=== PATIENT | female | born 1970 | race Caucasian/White ===

== ENCOUNTER 2018-04-21 13:32 | Outpatient (CLI) | payer BC, SELFPAY ==
[2018-04-21 13:56] LABS: Abs Immature Grans 0.02 k/cumm (0.0-0.09); Absolute Basophil Count 0.04 k/cumm (0.0-0.2); Absolute Eosinophil Count 0.19 k/cumm (0.0-0.7); Absolute Lymphocyte Count 1.82 k/cumm (1.2-3.4); Absolute Monocyte Count 0.65 k/cumm (0.11-0.7); Absolute Neutrophil Count 6.01 k/cumm (1.2-6.7); Basophils % 0.5; Eosinophils % 2.2; HCT 36.4 % (36.0-46.0); HGB 11.9 g/dL (12.0-15.5); Immature Grans % 0.2; Lymphocytes % 20.8; Mean Corp. HGB Concentration 32.7 g/dL (32.0-36.0); Mean Corpuscular Hemoglobin 29.8 pg (27.0-33.0); Mean Corpuscular Volume 91.2 fL (80-95); Mean Platelet Volume 10.4 fL (8.0-11.0); Monocytes % 7.4; Neutrophils % 68.9; Platelet Count 324 x1000/uL (130-400); RBC 3.99 m/cumm (4.00-5.20); RBC Distribution Width 13.6 % (11.7-14.6); White Blood Cell Count 8.73 k/cumm (4.4-10.8)
[2018-04-21 14:15] LABS: ALT 21 U/L (12-78); AST 15 U/L (15-37); Alkaline Phosphatase 69 U/L (46-116); Anion Gap 6.5 mmol/L (3-11); BUN 16 mg/dL (7-18); Bilirubin, Total 0.2 mg/dL (0.2-1.0); CO2 29.5 mmol/L (21.0-32.0); CREATININE 0.79 mg/dL (0.55-1.02); Calcium 8.6 mg/dL (8.5-10.1); Chloride 103 mmol/L (98-107); Glucose 103 mg/dL (70-100); Potassium 3.9 mmol/L (3.5-5.1); Sodium 139 mmol/L (136-145)
== END 2018-04-21 13:52 ==
PROVIDERS: PCP Nurse Practitioner; Visit Provider Internal Medicine Hematology & Oncology
DX: C50.912 Malignant neoplasm of unspecified site of left female breast (principal); Z17.0 Estrogen receptor positive status [ER+]
CPT/HCPCS: 36415; 80053; 85025

== ENCOUNTER 2018-05-26 09:51 | Outpatient (CLI) | payer MEDICAID, SELFPAY ==
[2018-05-26 11:52] LABS: Cholesterol 232 mg/dL (50-200); HDL Cholesterol 48 mg/dL (40-60); LDL CHOLESTEROL 171 mg/dL (<100); Triglyceride 71 mg/dL (30-150)
[2018-05-26 12:07] LABS: Hemoglobin A1C 5.5 % (4.5-6.2)
[2018-05-26 12:15] LABS: FREE T4 1.53 ng/dL (0.76-1.46)
[2018-05-26 13:28] LABS: Vitamin D 25 Total 32.2 ng/ml (30-100)
== END 2018-05-26 10:11 ==
PROVIDERS: PCP Nurse Practitioner; Visit Provider Nurse Practitioner
DX: C73 Malignant neoplasm of thyroid gland (principal); E03.9 Hypothyroidism, unspecified; I10 Essential (primary) hypertension; R73.01 Impaired fasting glucose; E66.01 Morbid (severe) obesity due to excess calories; E55.9 Vitamin D deficiency, unspecified
CPT/HCPCS: 36415; 80061; 82306; 83721; 83036; 84439; 84443

== ENCOUNTER 2018-06-16 15:13 | Outpatient (REF) | payer MEDICAID, SELFPAY ==
--- NOTE | 2018-06-16 14:30 | PAPFT_PTH ---
PATIENT: Matteo Kim LOC: [facility] U#:[id number] AGE/SX: 47/F ROOM: RE06/16/[address]: Martha Montero : 1970 BED: DIS: 06/16/2018 SPEC #: [id number] RECD: 06/16/18 18:08 STATUS: JOVITAHector JAVIER #: [id number] CARYL: 06/16/18 14:[address]: Martha Montero DEPT: [facility] Cytology RECD BY: Ghada Fox ENTERED: 06/16/18 18:08 SP TYPE: PAPFT SULEMAN DR: Luisana Ayala APRN Tissues: 1 - CX/ENDOCX FOR PAP SMEARS Procedures: PAP THIN PREP/UVM Screening HPV DNA PROBE Comments: [id number]
== END 2018-06-16 15:33 ==
LOC: LBN 15:13
PROVIDERS: PCP Nurse Practitioner; Visit Provider Obstetrics & Gynecology Gynecology
DX: Z12.4 Encounter for screening for malignant neoplasm of cervix (principal); Z11.51 Encounter for screening for human papillomavirus (HPV)
CPT/HCPCS: 88142; 87624

== ENCOUNTER 2018-11-12 14:05 | Outpatient (CLI) | payer MEDICAID, SELFPAY ==
--- NOTE | 2018-11-12 14:06 | DI.US_ITS ---
SYMPTOM/DIAGNOSIS: UTERINE FIBROIDS N93.9, ABNL UTERINE BLEEDING PELVIC ULTRASOUND: Transabdominal and transvaginal examination was performed. The uterus measures 9.4 cm long x 5.2 cm AP x 6.1 cm transverse. The endometrial stripe is within normal limits at 0.8 cm. There is a 6 x 4.5 x 5.6 cm hypoechoic mass adjacent to the posterior body of the uterus. No internal blood flow is seen. Both ovaries were visualized and are grossly unremarkable with normal blood flow. No evidence of torsion is seen No free pelvic fluid or hydronephrosis is identified. IMPRESSION: 6 x 4.5 x 5.6 cm hypoechoic mass posterior to the uterus. This may represent an exophytic uterine fibroid. Other pelvic masses cannot be excluded. An MRI of the pelvis should be considered for further evaluation.
== END 2018-11-12 14:25 ==
PROVIDERS: PCP Nurse Practitioner; Visit Provider Obstetrics & Gynecology Gynecology
DX: D25.9 Leiomyoma of uterus, unspecified; N93.9 Abnormal uterine and vaginal bleeding, unspecified
CPT/HCPCS: 76830; 76856

== ENCOUNTER 2018-11-24 09:03 | Outpatient (CLI) | payer MEDICAID, SELFPAY ==
[2018-11-24 09:23] LABS: HCT 39.1 % (36.0-46.0); HGB 12.7 g/dL (12.0-15.5); Mean Corp. HGB Concentration 32.5 g/dL (32.0-36.0); Mean Corpuscular Hemoglobin 29.3 pg (27.0-33.0); Mean Corpuscular Volume 90.3 fL (80-95); Mean Platelet Volume 10.5 fL (8.0-11.0); Platelet Count 331 x1000/uL (130-400); RBC 4.33 m/cumm (4.00-5.20); White Blood Cell Count 6.25 k/cumm (4.4-10.8)
[2018-11-24 10:25] LABS: Calculated LDL 153 mg/dL; Cholesterol 214 mg/dL (50-200); HDL Cholesterol 47 mg/dL (40-60); Triglyceride 72 mg/dL (30-150)
[2018-11-24 11:38] LABS: FREE T4 1.74 ng/dL (0.76-1.46)
== END 2018-11-24 09:23 ==
PROVIDERS: PCP Nurse Practitioner; Visit Provider Obstetrics & Gynecology Gynecology
DX: E03.9 Hypothyroidism, unspecified (principal); N93.9 Abnormal uterine and vaginal bleeding, unspecified
CPT/HCPCS: 36415; 80061; 85027; 84439; 84443

== ENCOUNTER 2018-12-09 14:55 | Outpatient (CLI) | payer MEDICAID, SELFPAY ==
[2018-12-09 16:04] LABS: HCT 36.4 % (36.0-46.0); HGB 12.2 g/dL (12.0-15.5); Mean Corp. HGB Concentration 33.5 g/dL (32.0-36.0); Mean Corpuscular Volume 89.7 fL (80-95); Mean Platelet Volume 11.1 fL (8.0-11.0); Platelet Count 325 x1000/uL (130-400); RBC 4.06 m/cumm (4.00-5.20); RBC Distribution Width 14.6 % (11.7-14.6); White Blood Cell Count 10.42 k/cumm (4.4-10.8)
[2018-12-09 16:17] LABS: Anion Gap 2.9 mmol/L (3-11); BUN 21 mg/dL (7-18); CO2 29.1 mmol/L (21.0-32.0); CREATININE 0.76 mg/dL (0.55-1.02); Calcium 8.6 mg/dL (8.5-10.1); Chloride 106 mmol/L (98-107); Glucose 83 mg/dL (70-100); Potassium 3.7 mmol/L (3.5-5.1); Sodium 138 mmol/L (136-145)
[2018-12-09 16:31] LABS: TSH (W/Ref FT4) 1.29 uIU/mL (0.36-3.74)
== END 2018-12-09 15:15 ==
PROVIDERS: PCP Nurse Practitioner; Visit Provider Obstetrics & Gynecology Gynecology
DX: E03.9 Hypothyroidism, unspecified (principal); Z01.818 Encounter for other preprocedural examination; N93.8 Other specified abnormal uterine and vaginal bleeding; D25.9 Leiomyoma of uterus, unspecified; E66.9 Obesity, unspecified; Z01.812 Encounter for preprocedural laboratory examination
CPT/HCPCS: 36415; 80048; 85027; 86850; 86900; 86901; 84443

== ENCOUNTER 2018-12-11 12:37 | Observation (INO) | payer MEDICAID, SELFPAY ==
[2018-12-11] VITALS (14 sets, daily range): BP systolic 128–165; BP diastolic 73–99; PULSE 62–77; RESP 11–18; TEMP 36–37.1; O2SAT 95–99
[2018-12-11] MEDS: Lactated Ringers 1,000 ML 125 ML IV ×5 (07:05→22:33)
[2018-12-11] MEDS: ceFAZolin 2 GM/50 ML BAG IVPB (07:56)
[2018-12-11] MEDS: Bupivacaine 0.25% Pres-Free 30 ML VIAL (09:24)
--- NOTE | 2018-12-11 12:00 | UTER_PTH ---
PATIENT: Matteo Kim LOC: U#:[id number] AGE/SX: 48/F ROOM: RE12/11/[address]: Martha Montero : 1970 BED: A DIS: 12/12/2018 SPEC #: [id number] RECD: 12/11/18 12:57 STATUS: MARILY REQ #: [id number] CARYL: 12/11/18 12:[address]: Martha Montero DEPT: Surgical Specimen RECD BY: Ghada Fox ENTERED: 12/11/18 12:58 SP TYPE: UTER OTHR DR: Luisana Ayala APRN Tissues: 1 - UTERUS W OR W/O OVARIES(NOT TUMOR/PROLAPSE) Procedures: GROSS AND MICRO LEVEL 5 Comments: [id number]
[2018-12-11] MEDS: oxyCODONE 5 mg/Acetaminophen 325 mg TAB PO ×3 (14:29→19:43)
[2018-12-11] MEDS: Ketorolac 30 MG/ML VIAL IVP (17:03)
--- NOTE | 2018-12-11 18:34 | W.PM.OP ---
Date of service: 12/11/18 Time of Service: 18:34 Operative Note Operative Note DATE OF PROCEDURE: 12/11/18 PRE-OP DIAGNOSIS: Abnormal uterine bleeding, fibroid uterus POST-OP DIAGNOSIS: same PROCEDURE: Laparoscopic assisted vaginal hysterectomy with bilateral salpingo-oophorectomy. SURGEON: Martha Montero ENDLESS BED DRUM SANDER: Lyla Ford ANESTHESIA: GETA ESTIMATED BLOOD LOSS: 200 PATHOLOGY: other (Uterus uterine fibroid bilateral fallopian tubes and ovaries) COMPLICATIONS: None Patient was transported to: PACU Patient's condition: stable Indications: 48-year-old female with symptomatic uterine fibroid and abnormal uterine bleeding was not a candidate for medical therapy Findings: 6 cm pedunculated fibroid from the posterior lower uterine segment normal ovaries and normal fallopian tubes. Normal upper abdomen. Procedure Description: Patient was placed in the dorsal lithotomy position and general endotracheal anesthesia was administered without difficulty. She received preoperative IV antibiotics prior to entry to the operating room. She was prepped and draped in the usual sterile fashion after being placed in the lithotomy position using yellowfin stirrups. Surgical timeout was performed. Espinal catheter placed to gravity drainage a bivalve speculum was placed into the vagina and the anterior lip of the cervix was grasped with a single-tooth tenaculum and a 0 Vicryl suture was placed through the body of the cervix and held long. The cervix then sequentially dilated to admit a V care uterine manipulator was inserted to a depth of 8 cm and the bulb inflated. The V care colpotomizer cup was then fitted over the cervix and against the vaginal cervical interface. An attempt at using the 0 Vicryl suture to secure the colpotomizer cup was unsuccessful when the suture was pulled through the cervix. However the colpotomizer cup was secured in place with excellent uterine manipulation achieved. Attention was then turned to the patient's abdomen where the umbilical fold was infiltrated with quarter percent Marcaine and a 5 mm skin incision was made with a scalpel in a vertical fashion in the umbilical fold. Under direct visualization using ultrasound guidance a varies needle was inserted through the umbilical incision and intra-abdominal placement visualized with ultrasound guidance and confirmed by drop in the intra-abdominal pressure. Pneumoperitoneum was achieved with carbon dioxide. The varies needle was then withdrawn and a 5 mm trocar Visiport was introduced into the abdomen and intra-abdominal placement confirmed visually. Patient was then placed in Trendelenburg and 2 5 mm skin incisions were made with a scalpel 2.5 cm to the superior anterior iliac crest after infiltration of the site with quarter percent Marcaine. A 5 mm trocar and sleeve were placed through the right and left incisions respectively. The patient was then placed in Trendelenburg. Her pelvis, cul-de-sac, and pelvic sidewalls carefully inspected with the above-noted findings. A LigaSure bipolar device was used to grasp the left round ligament which was then cauterized and transected. The anterior leaf the broad ligament was then sequentially cauterized and transected to the level of the lower uterine segment. This allowed the bladder flap to be dissected off of the lower uterine segment and the bladder retracted away from the body of the cervix. The left infundibulopelvic ligament was then grasped cauterized and transected and the incision carried out to the posterior leaf of the broad ligament to the lateral margin of the left lower uterine segment. A similar technique was carried out on the contralateral side with the anterior lip of the broad ligament incised to the level of the previous lower uterine segment which allowed sufficient mobilization of the bladder flap. The right-sided uterine vessels were skeletonized, cauterized and transected. The left uterine vessels were then skeletonized cauterized and transected. The posterior peritoneum was then incised in any additional filmy attachments of the bladder flap to the lower uterine segment where cauterized and transected. Colpotomizer cup was palpable and the anterior cup was felt to be distant from the bladder. A monopolar J-hook was then used to cut the cervix away from the vaginal tissue along the anterior, lateral, and posterior lower uterine segment. There is confirmed that the cervix was completely dissected from the vaginal cuff the pneumoperitoneum was reduced and surgery proceeded at the vagina. The colpotomizer was removed. The balloon that had been inflated within the uterine cavity had deflated so we were unable to deliver the uterus and the colpotomizer together. A weighted speculum was placed into the vagina and the anterior wall of the vagina was retracted using a curved Freddy the cervix was palpated grasped with a single-tooth tenaculum and successfully delivered through the vaginal cuff followed by the uterus right adnexa with attached fibroid. The left fallopian tube was intact at the left ovary had been evulsed and remained in the abdomen. The specimen was passed off of the operative field. The vaginal cuff was closed with a running suture of 0 Vicryl extending from the cephalad to the caudal portion of the vaginal cuff. Site was hemostatic. Vaginal packing was placed. Attention was then turned to the abdomen. After the counts and gloves were changed pneumoperitoneum was once again reestablished patient placed in Trendelenburg and the remaining ovary was located at the vaginal cuff grasped placed in a 10 mm Endo Catch bag which had been placed through the right lower incision that had been extended to admit a 10 mm trocar and sleeve. The vaginal cuff was inspected and noted to be hemostatic all pedicles from the right and left adnexa were also hemostatic. Pelvis is irrigated saline was aspirated. A Ezequiel-Cathy device was used to close the right lower 10 mm trocar site. Under direct visualization the left 5 mm trocar was removed pneumoperitoneum reduced and a 5 mm umbilical trocar removed. The skin of all trocar sites was closed with skin glue and covered with a dry sterile dressing. The patient was awakened from anesthesia extubated and transported to recovery area in stable condition all sponge lap and needle counts were correct x2.
--- NOTE | 2018-12-11 19:06 | W.PM.PROGNOT ---
Date of Service Date of service: 12/11/18 Time of Service: 19:07 Assessment and Plan Assessment and plan (1) S/P laparoscopic hysterectomy: Status: Acute Assessment and plan: Stable postop course plan discharge in the morning check CBC and BMP. Plan to remove vaginal packing in a.m. Subjective Subjective Patient reports: tolerating a regular diet Interval history since last seen: Postop day 0 laparoscopic assisted vaginal hysterectomy with bilateral salpingo-oophorectomy. Patient sitting up in bed stating that she is comfortable having received Toradol and a dose of Percocet. I reviewed the events of the surgery and the plan of care for this evening. She was instructed that she may get up with assistance as needed and if she felt comfortable enough to ambulate she could have the Espinal out at her discretion. The vaginal packing will be removed in the morning and most likely she will be discharged to home. Exam Const General: no acute distress Resp Effort & Inspection: normal respiratory effort GI Inspection: incision (Was clean dry dressings) Other: Vaginal packing remains in place. Clear burke urine in the Espinal catheter. Skin General skin exam: no rashes or lesions noted Extrem General: normal to inspection, full ROM (SCDs in place.) and normal capillary refill Objective Objective Clinical Data: Vital Signs Temperature 96.8 F L 12/11/18 16:17 Temperature Source Tympanic 12/11/18 16:17 Pulse 71 12/11/18 16:17 Pulse Rhythm Regular 12/11/18 14:15 Respiratory Rate 18 12/11/18 16:17 Respiratory Effort 12/11/18 14:15 Respiratory Depth Normal 12/11/18 14:15 Respiratory Pattern Normal 12/11/18 14:15 Blood Pressure 147/95 H 12/11/18 16:17 Pulse Oximetry 98 12/11/18 16:17 Respiratory End-tidal CO2 34 12/11/18 13:35 Oxygen Delivery Method Room Air 12/11/18 16:17 Oxygen Flow Rate 0 12/11/18 16:17 Pain Level 3 12/11/18 17:03 Comment 12/11/18 06:37 Intake & Output 12/10/18 12/11/18 12/11/18 23:59 11:59 23:59 Intake Total 1050 / 2408.333 1358.333 / 2408.333 Output Total 2049 Balance 1050 / 358.333 -691.667 / 358.333 Weight 271 lb 6.224 oz Intake: IV 1050 / 2358.333 1308.333 / 2358.333 Oral 50 / 50 Output: Urine 1550 / 1550 Estimated Blood Loss 500 / 500 Other: Urine Color Yellow Yellow Urine Appearance Clear Clear Emesis Description None
[2018-12-11] MEDS: Docusate Sodium 100 MG CAP PO (19:35)
[2018-12-12] MEDS: Ketorolac 30 MG/ML VIAL IVP ×2 (01:10→06:19)
[2018-12-12] MEDS: Normal Saline Flush 10 ML SYR IV ×3 (01:10→06:20)
[2018-12-12] MEDS: oxyCODONE 5 mg/Acetaminophen 325 mg TAB PO ×2 (01:21→09:29)
[2018-12-12] MEDS: diphenhydrAMINE 50 MG/ML VIAL IVP (01:29)
[2018-12-12 03:30] VITALS: BP 142/76; PULSE 71; RESP 17; TEMP 37.2; O2SAT 96
[2018-12-12] MEDS: Levothyroxine 175 MCG TAB PO (06:20)
[2018-12-12] MEDS: Lactated Ringers 1,000 ML 125 ML IV (06:21)
[2018-12-12 07:05] LABS: Anion Gap 3.8 mmol/L (3-11); BUN 10 mg/dL (7-18); CO2 28.2 mmol/L (21.0-32.0); CREATININE 0.71 mg/dL (0.55-1.02); Chloride 109 mmol/L (98-107); Glucose 95 mg/dL (70-100); Potassium 3.8 mmol/L (3.5-5.1); Sodium 141 mmol/L (136-145)
[2018-12-12 07:06] LABS: HCT 31.7 % (36.0-46.0); HGB 10.3 g/dL (12.0-15.5); Mean Corp. HGB Concentration 32.5 g/dL (32.0-36.0); Mean Corpuscular Hemoglobin 29.4 pg (27.0-33.0); Mean Corpuscular Volume 90.6 fL (80-95); Mean Platelet Volume 10.6 fL (8.0-11.0); Platelet Count 286 x1000/uL (130-400); RBC Distribution Width 14.7 % (11.7-14.6); White Blood Cell Count 11.39 k/cumm (4.4-10.8)
[2018-12-12 07:20] VITALS: BP 151/89; PULSE 63; RESP 18; TEMP 36.6; O2SAT 98
--- NOTE | 2018-12-12 08:15 | PHARADMIT ---
Admission Pharmacy Clinical Review LAPAROSCOPIC HYSTERECTOMY & BILATERAL SALPINGOOP Code Status Full Code Current Weight Wgt- 123.1 kg Renally Cleared and Narrow Therapeutic Index Meds CrCl~78.75 mL/min Meds-OK QTc Value / Action Taken NONE CURRENT BP Control, Fever BP- 151/89 Tm<ax-37.1C Electrolytes reviewed Na-141 K+3.8 DVT Prophylaxis SCDs Opiate Usage / Scheduled Bowel Regimen Ordered Yes Yes Plt/SCr for Heparin / Enoxaparin Plts-286 SCr-0.71 INR for Warfarin NA H/H stable, WBC/Bands H&H- 10.3/31.7 WBC-11.39 Antibiotic appropriatancef pre-op ancef pre-op Cultures and Sensitivities none Surgical ABX d/c within 24 hr none DM control / Insulin Dosing BG-95 Heart Failure (Check EF%) (BIENVENIDO's, B-Block, Diuretics) none IV to PO Switch no Home Meds Reviewed Yes Home Meds Not Ordered Claritin, Vit-D,M-vites, Ativan, TAC cream Comments
[2018-12-12] MEDS: Docusate Sodium 100 MG CAP PO (09:29)
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
== END 2018-12-12 12:35 | disposition home or self-care (01) ==
LOC: SUR 12:57 → MS 14:10
PROVIDERS: Admitting Provider Obstetrics & Gynecology Gynecology; PCP Nurse Practitioner; Visit Provider Obstetrics & Gynecology Gynecology
PROC: 0UT9FZZ Resection of Uterus, Via Natural or Artificial Opening With Percutaneous Endoscopic Assistance (ICD-10-PCS; CPT 58552; principal; 2018-12-11 07:30)
DX: N93.8 Other specified abnormal uterine and vaginal bleeding (principal); D25.1 Intramural leiomyoma of uterus; D25.0 Submucous leiomyoma of uterus; N84.1 Polyp of cervix uteri; D25.9 Leiomyoma of uterus, unspecified; N83.12 Corpus luteum cyst of left ovary; D28.2 Benign neoplasm of uterine tubes and ligaments; Z85.3 Personal history of malignant neoplasm of breast; Z90.710 Acquired absence of both cervix and uterus; Z90.79 Acquired absence of other genital organ(s); Z90.722 Acquired absence of ovaries, bilateral; E66.9 Obesity, unspecified; Z68.41 Body mass index [BMI] 40.0-44.9, adult
CPT/HCPCS: 58552; 36415; 80048; 81025; 85027; NC; 88307; G0378; J0131; J0690; J1100; J1200; J1885; J2250; J2405; J3010

== ENCOUNTER 2019-03-12 07:11 | Emergency (ER) | payer MEDICAID, SELFPAY ==
[2019-03-12 07:18] VITALS: BP 187/109; PULSE 88; RESP 16; TEMP 36.6; O2SAT 100
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
[2019-03-12] MEDS: Dexamethasone 10 MG/ML VIAL PO (07:36)
[2019-03-12 07:51] VITALS: BP 159/90; PULSE 62; O2SAT 100
== END 2019-03-12 07:55 | disposition home or self-care (01) ==
PROVIDERS: Emergency Provider Emergency Medicine; PCP Nurse Practitioner
DX: J39.8 Other specified diseases of upper respiratory tract (principal); R60.0 Localized edema; R06.83 Snoring
CPT/HCPCS: 99284; J1100

== ENCOUNTER 2019-03-23 14:37 | Outpatient (CLI) | payer MEDICAID, SELFPAY ==
[2019-03-25 14:56] LABS: Almond IgE <0.35 kU/L; Baker's Yeast, IgE <0.35 kU/L; Banana, IgE 0.38 kU/L; Barley, IgE <0.35 kU/L; Beef IgE <0.35 kU/L; Black/White Pepper IgE <0.35 kU/L; Brazil Nut IgE <0.35 kU/L; Broccoli IgE <0.35 kU/L; Cacao/Cocoa, IgE <0.35 kU/L; Cashew IgE <0.35 kU/L; Cinnamon, IgE <0.35 kU/L; Corn-Food IgE <0.35 kU/L; Hazelnut-Food IgE <0.35 kU/L; Milk, IgE <0.35 kU/L; Onion, IgE <0.35 kU/L; Peanut IgE 0.14 kU/L; Pecan-Food IgE <0.35 kU/L; Soybean IgE <0.35 kU/L; Strawberry, IgE <0.35 kU/L; Walnut-Food IgE <0.35 kU/L; White Potato, IgE <0.35 kU/L
[2019-03-26 22:31] LABS: CLASS 0/1; Egg Whole IgE 0.13 kU/L (<0.35)
== END 2019-03-23 14:57 ==
PROVIDERS: PCP Nurse Practitioner; Visit Provider Otolaryngology Otolaryngology/Facial Plastic Surgery
DX: T78.3XXD Angioneurotic edema, subsequent encounter (principal); Z01.82 Encounter for allergy testing
CPT/HCPCS: 36415; 86003

== ENCOUNTER 2019-04-13 11:54 | Outpatient (CLI) | payer MEDICAID, SELFPAY ==
--- NOTE | 2019-04-13 11:53 | DI.RAD_ITS ---
EXAM: XR KNEE RT 3V AP,LAT,SHEN INDICATION: R knee pain. COMPARISON: No exams were available for comparison TECHNIQUE: 2D digital imaging was performed. FINDINGS: No fracture or joint effusion is seen. There is mild spurring at the articular aspect of the patella and tibial spines. The joint spaces are well maintained. IMPRESSION: Mild degenerative changes.
== END 2019-04-13 12:14 ==
PROVIDERS: PCP Nurse Practitioner; Visit Provider Physician Assistant
DX: M25.561 Pain in right knee (principal); M17.12 Unilateral primary osteoarthritis, left knee
CPT/HCPCS: 73562

== ENCOUNTER 2019-08-28 02:12 | Outpatient (CLI) | payer MEDICAID, SELFPAY ==
--- NOTE | 2019-08-28 06:45 | DI.MRI_ITS ---
EXAM: MR LOWER JOINT RT WO CLINICAL HISTORY: Right knee injury, PAIN, ACUTE MENISCAL TEAR,S83.206A. TECHNIQUE: Multiplanar multisequence MRI was performed. COMPARISON: CR XR KNEE RT 3V AP,LAT,SHEN from 04/13/2019 FINDINGS: BONES: There is no fracture or contusion pattern. JOINTS: There is mild thinning of the articular cartilage in the medial femoral tibial joint with mil d associated subchondral edema. Moderate joint effusion. TENDONS: Extensor mechanism: Unremarkable. Medial retinaculum: Unremarkable. Lateral retinaculum: Unremarkable. Popliteus: Unremarkable. MUSCLES: Unremarkable. MENISCI: Hyperintense signal seen in the body and posterior horn of the medial meniscus which appears to contact the articular surface consistent with a tear. The lateral meniscus is unremarkable. SOFT TISSUES: There is a popliteal cyst. LIGAMENTS: Anterior Cruciate: Unremarkable. Posterior Cruciate: Unremarkable. Medial Collateral:There is some fluid around the medial collateral ligament which may represent a gra de 1 sprain. Lateral Collateral: Unremarkable. OTHER: IMPRESSION: 1. Tear of the body and posterior horn of the medial meniscus. 2. Degenerative changes seen in the medial femoral tibial joint. 3. Moderate joint effusion and popliteal cyst. DATA REPOSITORY:
== END 2019-08-28 02:32 ==
PROVIDERS: PCP Nurse Practitioner; Visit Provider Student in an Organized Health Care Education/Training Program
DX: M25.561 Pain in right knee (principal); S83.241A Other tear of medial meniscus, current injury, right knee, initial encounter; M25.461 Effusion, right knee; M17.11 Unilateral primary osteoarthritis, right knee
CPT/HCPCS: 73721

== ENCOUNTER 2019-10-09 02:26 | Outpatient (CLI) | payer MEDICAID, SELFPAY ==
[2019-10-10 23:45] LABS: COVID-19 RT-PCR Result NEGATIVE (Negative)
== END 2019-10-09 02:46 ==
PROVIDERS: Student in an Organized Health Care Education/Training Program; PCP Nurse Practitioner; Visit Provider Nurse Practitioner
DX: M25.561 Pain in right knee (principal); Z01.818 Encounter for other preprocedural examination
CPT/HCPCS: U0003

== ENCOUNTER 2019-10-09 08:08 | Outpatient (CLI) | payer MEDICAID, SELFPAY ==
[2019-10-09 11:03] LABS: ALT 23 U/L (14-59); AST 13 U/L (15-37); Albumin 3.4 g/dL (3.4-5.0); Alkaline Phosphatase 81 U/L (46-116); BUN 17 mg/dL (7-18); Bilirubin, Total 0.5 mg/dL (0.2-1.0); Calcium 9.2 mg/dL (8.5-10.1); Calculated LDL 147 mg/dL (<100); Chloride 103 mmol/L (98-107); Cholesterol 209 mg/dL (<200); Glucose 93 mg/dL (74-106); HDL Cholesterol 45 mg/dL (40-60); Potassium 4.5 mmol/L (3.5-5.1); Sodium 141 mmol/L (136-145); TSH (W/Ref FT4) 0.12 uIU/mL (0.36-3.74); Total Protein 6.7 g/dL (6.4-8.2); Triglyceride 88 mg/dL (<150)
[2019-10-09 11:21] LABS: FREE T4 1.98 ng/dL (0.76-1.46)
== END 2019-10-09 08:28 ==
PROVIDERS: PCP Nurse Practitioner; Visit Provider Student in an Organized Health Care Education/Training Program
DX: E03.9 Hypothyroidism, unspecified (principal); E66.9 Obesity, unspecified; I10 Essential (primary) hypertension; Z01.818 Encounter for other preprocedural examination
CPT/HCPCS: 36415; 80053; 80061; 84439; 84443

== ENCOUNTER 2019-10-13 10:09 | Day surgery (SDC) | payer MEDICAID, SELFPAY ==
[2019-10-13 10:47] VITALS: BP 158/96; PULSE 63; RESP 18; TEMP 36; O2SAT 100
[2019-10-13] MEDS: Lactated Ringers 1,000 ML 80 ML IV (11:15)
[2019-10-13] MEDS: ceFAZolin 3,000 MG in Normal Saline 100 ML 200 MG IVPB (12:34)
--- NOTE | 2019-10-13 13:16 | W.PM.DSUDISC ---
Discharge Plan Disposition Patient Disposition: HOME Condition: Good Discharge Details Reason For Visit: R KNEE MMT Attending Provider: Hugo Pickett Primary Care Provider: Luisana Ayala Home Meds and New Rx's Prescriptions: New hydrocodone-acetaminophen 5-325 mg tablet 1 tab PO Q4H PRN (Reason: pain) Qty: 14 RF: 0 acetaminophen 500 mg tablet 500 mg PO Q6H PRN PRN (Reason: pain) Qty: 60 RF: 3 Continued biotin 1,000 mcg tablet,chewable 5,000 mcg PO DAILY RF: 0 multivitamin [Daily Multi-Vitamin] 1 EACH tablet 1 ea PO DAILY PRNRF: 0 diphenhydramine HCl [Benadryl] 25 MG capsule 25 mg PO HS PRNRF: 0 loratadine 10 mg capsule 10 mg PO DAILY PRN (Reason: allergy symptoms) Qty: 30 RF: 0 levothyroxine 175 mcg tablet 175 mcg PO DAILY Qty: 90 RF: 3 desoximetasone 0.05 % cream 1 applic TP BID RF: 0 cholecalciferol (vitamin D3) 1,250 mcg (50,000 unit) capsule 50,000 unit PO weekly Qty: 12 RF: 3 lorazepam 1 mg tablet 1 mg PO DAILY PRN (Reason: anxiety) Qty: 30 RF: 0 cetirizine 10 mg Tablet 10 mg PO DAILY PRNRF: 0 ibuprofen 800 mg tablet 800 mg PO TID PRN (Reason: fever or pain) Qty: 90 RF: 0 Discharge Instructions Stand Alone Forms: [facility] Knee Arthroscopy Referrals: Hugo Pickett MD [ [facility] STAFF PHYSICIAN] - Equipment/Supplies: Partial Weight Bearing Crutches Activity:: Elevate Remove Dressings/Wound Care:: 72 hours Shower/Bathe:: 72 hours Diet:: As Tolerated Discharge Orders Discharge Orders: Discharge Order (Routine); Ordered 10/13/19 Ordered By: Hugo Pickett DS: Diagnosis Discharge Diagnosis (1) Acute meniscal tear of right knee: Status: Suspected
[2019-10-13 13:21] VITALS: BP 160/97; PULSE 57; RESP 16; TEMP 36; O2SAT 98
[2019-10-13 13:25] VITALS: BP 169/135; PULSE 59; RESP 14; TEMP 36; O2SAT 98
[2019-10-13] MEDS: Bupivacaine 0.5% Pres-Free 30 ML VIAL (13:27)
[2019-10-13 13:30] VITALS: BP 177/89; PULSE 58; RESP 13; TEMP 36; O2SAT 100
[2019-10-13 13:45] VITALS: BP 161/79; PULSE 53; RESP 17; TEMP 36.1; O2SAT 100
[2019-10-13] MEDS: HYDROcodone 5/Acetaminophen 325 TAB PO (14:34)
[2019-10-13 14:40] VITALS: BP 159/98; PULSE 56; RESP 18; TEMP 36.3; O2SAT 99
--- NOTE | 2019-10-13 14:48 | ROE_ITS ---
Date of service: 10/13/19 Time of Service: 13:49 Operative Note Operative Note DATE OF PROCEDURE: 10/13/19 PRE-OP DIAGNOSIS: Right Knee Medial Meniscus Tear POST-OP DIAGNOSIS: same Right knee chondromalacia PROCEDURE: Right Knee Partial Medial Menisectomy, Lateral Tibial Chondroplasty SURGEON: Hugo Pickett ANESTHESIA: TIGRE ESTIMATED BLOOD LOSS: 5 PATHOLOGY: none sent TOURNIQUET TIME: 0 COMPLICATIONS: None Patient was transported to: PACU Patient's condition: stable Indications: I have seen Matteo in clinic for symptoms of a meniscus tear. This was confirmed based on MRI and exam findings. Nonoperative measures were exhausted but disability and pain persisted. I discussed knee arthroscopy with meniscal intervention with the patient. I reviewed the risks of the procedure to include, but not limited to, bleeding, infection, pain, stiffness, damage to nerves or vessels, recurrence, blood clot. Despite these risks, the patient elected to proceed. Findings: A diagnostic arthroscopy was performed with the following findings: Suprapatellar Pouch: Mild inflammatory changes, No loose bodies Medial Compartment: Complex medial meniscal tear, Intact meniscal root, some focal areas of grade II chondromalacia, no loose bodies Notch: ACL and PCL were intact Lateral Compartment: No meniscal tear, intact meniscal root, fissuring of the medial aspect of the lateral tibia down to bone but no gross bone exposed, no loose bodies Patellofemoral Compartment: Grade II chondromalacia over the lateral facet, no apparent patellar maltracking Procedure Description: Matteo was greeted in the preoperative holding area where the correct side was identified and marked. The consent was reviewed with the patient and signed. The history and physical was updated. All questions were answered. Matteo was taken back to the operating room. The patient was placed into the supine position on the operating room table. A nonsterile tourniquet was placed high onto the leg but not used. All bony prominences were well padded. Prophylactic antibiotics in the form of cefazolin were administered. The right leg was then prepped with Chloraprep and draped in a standard fashion with stockinette and extremity drape. A timeout to confirm correct identity, side and site, procedure, allergies, anesthesia, and medical concerns was performed. The leg was placed into a pneumatic leg george, [id number]. A standard lateral por toby was made at the lateral border of the patella tendon in line with the inferior pole of the patella, soft spot. The skin and deep tissue was incised sharply and the blunt trochar was inserted atraumatically. A diagnostic arthroscopy was performed and the findings are listed above. The suprapatellar pouch had mild inflammatory change. The patellofemoral articulation showed some grade II chondromalacia over the lateral facet as well as good tracking. The lateral gutter had no loose bodies and the medial gutter had no loose bodies. The knee was brought into some valgus stress in extension to open the medial compartment. A medial portal was made, localized by a spinal needle. The portal was created with an #11 blade through skin and capsule under direct visualization avoiding any meniscal injury. A probe was then inserted into the medial compartment. The medial compartment was fully inspected. The chondral surface of the tibia showed no significant chondromalacia and the surface of the femur showed some grade II chondromalacia. The medial meniscus had a complex medial meniscal tear extending from the horn into the root but not destabilizing the root. After evaluation, the meniscus was debrided down to a stable base using a series of biters and arthroscopic laurent. It was probed afterwards to confirm that the tear had been removed and the meniscus was stable. The notch was then inspected which showed an intact ACL and an intact PCL. The leg was then brought into a figure of 4 position. The lateral compartment was fully inspected with the arthroscope and a probe. The chondral surface of the lateral femur showed no significant chondromalacia. The chondral surface of the lateral tibia showed some fissuring and fraying of the medial aspect of the lateral tibia with some fissuring down to bone. There were also some loose fragments of cartilage lightly attached. The lateral meniscus had no meniscal tear. Cartilage surfaces were debrided of any flaps, leaving any intact fibers. The arthroscope was brought back into the suprapatellar pouch and the leg was in full extension. The knee was thoroughly irrigated with the arthroscopic fluid on high flow and pressure. Inflow was stopped and excess fluid was removed. The wounds were closed with 4-0 Nylon. They were dressed with Xeroform, 4x4 gauze, ABD pad, Kerlix and an BIENVENIDO wrap. A cryo-cuff was applied. The patient tolerated the procedure well and was returned to the Same Day Surgery area in a stable condition suffering no known complication.
== END 2019-10-13 15:47 | disposition home or self-care (01) ==
PROVIDERS: PCP Nurse Practitioner; Visit Provider Student in an Organized Health Care Education/Training Program
PROC: (CPT 29870; principal; 2019-10-13 12:30)
DX: S83.231A Complex tear of medial meniscus, current injury, right knee, initial encounter (principal); M94.261 Chondromalacia, right knee; X58.XXXA Exposure to other specified factors, initial encounter
CPT/HCPCS: 29881; E0114; J0131; J0690; J1100; J1885; J2250

== ENCOUNTER 2020-01-22 02:46 | Outpatient (CLI) | payer BC, MEDICAID, SELFPAY ==
[2020-01-22 13:00] LABS: FREE T4 1.77 ng/dL (0.76-1.46); TSH 0.96 uIU/mL (0.36-3.74)
== END 2020-01-22 03:06 ==
PROVIDERS: PCP Nurse Practitioner; Visit Provider Nurse Practitioner
DX: E03.9 Hypothyroidism, unspecified (principal)
CPT/HCPCS: 36415; 84439; 84443

== ENCOUNTER → 2020-04-08 10:39 | Outpatient (CLI) | payer BC, SELFPAY ==
--- NOTE | 2020-04-08 09:45 | DI.RAD_ITS ---
EXAM: XR ANKLE LT COMPLETE CLINICAL HISTORY: fracture? TECHNIQUE: 2D digital imaging was performed. COMPARISON: No exams were available for comparison FINDINGS: BONES: No acute fracture is present. No bony destructive lesion is seen. There is plantar calcaneal s pur. There is an enthesophyte at the Achilles insertion site. JOINTS:The ankle mortise is normally aligned. SOFT TISSUE: Normal. IMPRESSION: No acute fracture or dislocation. DATA REPOSITORY: RADIATION DOSE DELIVERED:
== END ==
PROVIDERS: PCP Nurse Practitioner; Referring Provider Nurse Practitioner; Visit Provider Physician Assistant Surgical
DX: M25.572 Pain in left ankle and joints of left foot (principal); M77.32 Calcaneal spur, left foot
CPT/HCPCS: 73610

== ENCOUNTER 2020-06-06 10:28 | Outpatient (CLI) | payer BC, SELFPAY ==
[2020-06-07 14:31] LABS: COVID-19 RT-PCR UVMMC Result Negative (Negative)
== END 2020-06-06 10:29 | disposition home or self-care (01) ==
PROVIDERS: PCP Nurse Practitioner; Visit Provider Nurse Practitioner
DX: Z20.822 Contact with and (suspected) exposure to COVID-19 (principal)
CPT/HCPCS: U0003

== ENCOUNTER 2020-06-11 11:48 | Emergency (ER) | payer BC, MEDICAID, SELFPAY ==
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
[2020-06-11 11:55] VITALS: BP 142/77; PULSE 89; RESP 20; TEMP 36.7; O2SAT 97
--- NOTE | 2020-06-11 12:15 | DI.CT_ITS ---
EXAM: CT ABDOMEN PELVIS W CLINICAL HISTORY: lower abd pain,diarrhea,r/o colitis,diverticulitis. TECHNIQUE: Imaging Protocol: Axial computed tomography images with coronal and sagittal reformatted images were created and reviewed CONTRAST MATERIAL: Intravenous: Omnipaque 100cc Oral: None COMPARISON: No exams were available for comparison FINDINGS: VISUALIZED LUNG BASES: No nodules nor pleural effusions evident. ABDOMEN: There is no ascites. LIVER: There are no obvious focal hepatic lesions evident . GALLBLADDER/BILIARY: No obvious gallbladder pathology. CBD is not dilated. PANCREAS: No evidence of pancreatic mass nor dilatation of the pancreatic duct. SPLEEN: Spleen is not enlarged. No obvious intrasplenic lesions. Splenic and portal veins are paten t. ADRENALS: There are no significant adrenal masses. KIDNEYS:No cysts evident. No solid renal masses. No calculi nor hydronephrosis.. ABDOMINAL AORTA: Abdominal aorta is not enlarged. LYMPH NODES:There is no retroperitineal nor paraaortic adenopathy. ABDOMINAL WALL/GI: No evidence of significant anterior abdominal wall hernia. No bowel obstruction. PELVIS: GI: There is diverticulosis of the sigmoid. Also some perisigmoid streaking noted consistent with di verticulitis. The appendix is thin and contains air.There is some mild streaking in this area but th is is most probably related to the sigmoid more so than pathology in the appendix. LYMPH NODES: There is no intrapelvic nor inguinal adenopathy. REPRODUCTIVE: Uterus is surgically absent. No adnexal mass is seen. URINARY BLADDER: No masses or calculi nor gas seen within the urinary bladder. OSSEOUS: No significant osseous lesions. IMPRESSION: 1. Findings are consistent with acute sigmoid diverticulitis. There is no abscess at this time. RADIATION DOSE DELIVERED: 1,494.41mGy.cm Total DLP DATA REPOSITORY: All CT scans at this facility are submitted to the National Radiology Data Registry (NRDR) Dose Index Registry (DIR) with the [employer] (ACR). RADIATION OPTIMIZATION: All CT scans at this facility use at least one of these dose optimization te chniques: automated exposure control; mA and/or kV adjustment per patient size (includes targeted exa ms where dose is matched to clinical indication); or iterative reconstruction.
[2020-06-11 12:19] LABS: Abs Immature Grans 0.04 10^3/uL (0.0-0.06); Absolute Basophil Count 0.04 10^3/uL (0.0-0.2); Absolute Eosinophil Count 0.15 10^3/uL (0.0-0.7); Absolute Lymphocyte Count 0.98 10^3/uL (1.2-3.4); Absolute Monocyte Count 0.79 10^3/uL (0.1-0.8); Absolute Neutrophil Count 9.83 10^3/uL (1.2-6.7); Basophils % 0.3; Eosinophils % 1.3; HCT 41.8 % (36.0-46.0); HGB 13.9 g/dL (11.2-15.7); Immature Grans % 0.3; Lymphocytes % 8.3; MCH 29.2 pg (27.0-33.0); MCHC 33.3 % (32.0-36.0); MCV 87.8 fL (80-95); MPV 9.9 fL (8.0-11.0); Monocytes % 6.7; Neutrophils % 83.1; Nucleated RBC 0 %; Platelet Count 387 10^3/uL (130-400); RBC 4.76 10^6/uL (3.93-5.22); RDW 12.9 % (11.7-14.6); RDW-SD 41.6 fL; WBC 11.83 10^3/uL (4.4-10.8)
[2020-06-11] MEDS: Normal Saline 1,000 ML 1000 ML IV (12:23)
[2020-06-11] MEDS: Ondansetron 4 MG/2 ML VIAL IVP (12:25)
[2020-06-11 12:32] LABS: ALT 57 U/L (14-59); AST 27 U/L (15-37); Albumin 3.2 g/dL (3.4-5.0); Alkaline Phosphatase 94 U/L (46-116); Anion Gap 8.6 mmol/L (3-11); BUN 13 mg/dL (7-18); Bilirubin, Total 0.4 mg/dL (0.2-1.0); CO2 28.4 mmol/L (21.0-32.0); CREATININE 0.9 mg/dL (0.55-1.02); Calcium 8.7 mg/dL (8.5-10.1); Chloride 101 mmol/L (98-107); Glucose 125 mg/dL (74-106); Potassium 3.4 mmol/L (3.5-5.1); Sodium 138 mmol/L (136-145); Total Protein 7.4 g/dL (6.4-8.2)
[2020-06-11] MEDS: Omnipaque 350 MG/ML 100 ML BTL IJ (12:56)
[2020-06-11] MEDS: Potassium Chloride 20 MEQ TABCR 40 MEQ PO (12:58)
[2020-06-11] MEDS: Normal Saline - Diluent 50 ML VIAL IV (12:58)
[2020-06-11] MEDS: Normal Saline Flush 10 ML SYR IVP (12:58)
[2020-06-11 13:24] LABS: C Diff PCR Negative (Negative)
[2020-06-11 13:26] VITALS: BP 152/80; PULSE 67; RESP 18; O2SAT 98
[2020-06-11 13:32] LABS: Bilirubin Negative (Negative); Blood Negative (Negative); Clarity Clear (Clear); Glucose Negative (Negative); Ketones Negative (Negative); Leukocyte Esterase Negative (Negative); Nitrite Negative (Negative); Urobilinogen 0.2 EU/dL (Up TO 0.2)
--- NOTE | 2020-06-11 13:51 | DI.VRAD_ITS ---
PROCEDURE INFORMATION: Exam: CT Abdomen And Pelvis With Contrast Exam date and time: 06/11/2020 12:21 PM Age: 49 years old Clinical indication: Other: Lower abd pain, diarrhea, R/O colitis, diverticulitis TECHNIQUE: Imaging protocol: Computed tomography of the abdomen and pelvis with contrast. Contrast material: OMNIPAQUE 350; Contrast volume: 100 ml; Contrast route: INTRAVENOUS (IV); COMPARISON: US pelvis 11/12/2018 2:33 PM FINDINGS: Liver: Normal. No mass. Gallbladder and bile ducts: Normal. No calcified stones. No ductal dilation. Pancreas: Normal. No ductal dilation. Spleen: Normal. No splenomegaly. Adrenal glands: Normal. No mass. Kidneys and ureters: There is no evidence of renal or ureteral calcifications. Stomach and bowel: Diverticulosis and Bowel wall thickening along the rectosigmoid colon. Mild pericolonic inflammatory changes. No evidence of perforation or abscess formation or bleeding. Findings consistent with acute diverticulitis. Few loops of dilated jejunum taper quickly. This may represent ileus. No ira obstruction. Appendix: Normal appendix Intraperitoneal space: Unremarkable. No free air. No significant fluid collection. Vasculature: Unremarkable. No abdominal aortic aneurysm. Lymph nodes: Unremarkable. No enlarged lymph nodes. Urinary bladder: Unremarkable as visualized. Reproductive: Surgical resection of the uterus Bones/joints: Unremarkable. No acute fracture. Soft tissues: Unremarkable. IMPRESSION: 1. Diverticulosis and Bowel wall thickening along the rectosigmoid colon. Mild pericolonic inflammatory changes. No evidence of perforation or abscess formation or bleeding. Findings consistent with acute diverticulitis. 2. Few loops of dilated jejunum taper quickly. This may represent ileus. No ira obstruction. Dictated and Authenticated by: Benito Pulliam MD. Ordering:MORIAH Cooley MD
[2020-06-11] MEDS: Ketorolac 30 MG/ML VIAL IVP (14:45)
[2020-06-11] MEDS: Amoxicillin 875/Clav. 125 TAB PO (14:46)
[2020-06-11] MEDS: Amox. 875/Clav. 125, 2 TABS/BTL 1 TAB PO (14:46)
[2020-06-11 14:53] VITALS: BP 158/100; PULSE 66; RESP 18; O2SAT 97
[2020-06-12 22:11] LABS: Campylobacter PCR Negative (Negative); Salmonella PCR Negative (Negative); Shiga Toxin PCR Negative (Negative); Shigella/Enteroinvasive Ecoli Negative (Negative)
== END 2020-06-11 15:09 | disposition home or self-care (01) ==
LOC: ER 15:04
PROVIDERS: Emergency Provider Physician Assistant; PCP Nurse Practitioner
DX: K57.32 Diverticulitis of large intestine without perforation or abscess without bleeding (principal); R19.7 Diarrhea, unspecified; R11.0 Nausea; E87.6 Hypokalemia
CPT/HCPCS: 36415; 80053; 87493; 87505; 96361; 96374; 96375; 99285; 74177; 81003; 85025; J1885; J2405; J3490

== ENCOUNTER 2020-06-24 03:50 | Outpatient (CLI) | payer BC, MEDICAID, SELFPAY ==
--- NOTE | 2020-06-24 11:35 | DI.MRI_ITS ---
EXAM: MR LOWER JOINT LT WO CLINICAL HISTORY: LT ANKLE PAIN, OCCULT FX OF BONE,M25.572 TECHNIQUE: Multiplanar multisequence MRI was performed without intravenous contrast. COMPARISON: CR XR ANKLE LT COMPLETE from 04/08/2020 FINDINGS: BONES/JOINTS: No fracture or contusion pattern. No bone lesions identified. The talar dome is smooth. The ankle mortise is maintained. Small joint effusion. Plantar calcaneal spur. LIGAMENTS: The tibiofibular and calcaneofibular ligaments are intact. The talofibular ligaments are i ntact. The deltoid ligament is intact. The syndesmosis is unremarkable. Sinus tarsi is normal. MUSCULOTENDINOUS STRUCTURES: Achilles tendon: There is mild increased signal in the Achilles tendon near its insertion site which may represent Achilles tendinopathy. Plantar fascia: Unremarkable. Anterior Extensor tendons: Unremarkable. Posterior Tibialis: There is fluid surrounding the posterior tibialis tendon. No evidence of a tendo n tear. Flexor Digitorum longus: There is fluid surrounding the flexor digitorum longus tendon without eviden ce of a tear. Flexor Hallicus longus: There is fluid surrounding the flexor hallucis longus tendon without evidence of a tear. Peroneus longus: Unremarkable. Peroneus brevis:Unremarkable. SOFT TISSUES: There is edema seen in the soft tissues in the medial ankle and foot. No focal fluid c ollection is seen to suggest abscess. OTHER FINDINGS: None. IMPRESSION: 1. No evidence of an occult fracture or dislocation. 2. Fluid present in the flexor tendons without evidence of a tear. This may be within normal limits, but synovitis may be considered. Please correlate clinically. 3. No evidence of a tendon or ligament tear. 4. Edema seen in the medial soft tissues. No focal fluid collection is seen to suggest an abscess. 5. Mild signal seen in the Achilles tendon which may represent tendinopathy. DATA REPOSITORY:
== END 2020-06-24 04:10 ==
PROVIDERS: PCP Nurse Practitioner; Visit Provider Student in an Organized Health Care Education/Training Program
DX: M25.572 Pain in left ankle and joints of left foot (principal); R60.0 Localized edema
CPT/HCPCS: 73721

== ENCOUNTER 2020-07-22 04:44 | Outpatient (CLI) | payer BC, MEDICAID, SELFPAY ==
--- NOTE | 2020-07-22 11:35 | DI.RAD_ITS ---
Exam(s) XR LUMBAR SPINE COMPLETE EXAM: XR LUMBAR SPINE COMPLETE CLINICAL HISTORY: chronic low back pain,M54.5,G89.29. TECHNIQUE: 2D digital imaging was performed. COMPARISON: No exams were available for comparison FINDINGS: There are 5 lumbar type vertebral bodies. There is normal alignment. No spondylolysis or spondyloli sthesis. Mild disc space narrowing is seen at L5-S1. There are endplate osteophytes at multiple lev els of the lumbar spine. Degenerative changes of the facets are seen at L4-5 and L5-S1. No acute fr acture or subluxation. The bones appear normally mineralized. IMPRESSION: [id number] degenerative changes in the lumbar spine. DATA REPOSITORY: RADIATION DOSE DELIVERED:
== END 2020-07-22 05:04 ==
PROVIDERS: PCP Nurse Practitioner; Visit Provider Nurse Practitioner
DX: M54.5 Low back pain (principal); G89.29 Other chronic pain; M51.37 Other intervertebral disc degeneration, lumbosacral region; M47.817 Spondylosis without myelopathy or radiculopathy, lumbosacral region
CPT/HCPCS: 72110

== ENCOUNTER 2020-10-28 07:09 | Day surgery (SDC) | payer MEDICAID, SELFPAY ==
[2020-10-28 07:15] VITALS: BP 139/95; PULSE 69; RESP 18; TEMP 36.2; O2SAT 96
[2020-10-28] MEDS: Lactated Ringers 1,000 ML 80 ML IV (07:47)
--- NOTE | 2020-10-28 08:19 | W.ANESPRE ---
General Info Date of Service Date Performed: 10/28/20 Height: 5 ft 5.5 in Weight: 118.4 kg Body Mass Index (BMI): 42.7 Surgical Procedure: Operation Date: 10/28/20 08:20 Proposed Procedures Side Surgeon cortney Osorio, DO Meds Allergies and Home Medications Allergies Allergy/AdvReac Type Severity Reaction Status Date / Time peanut oil Allergy Severe throat Verified 10/28/20 07:27 closure, body itch No Known Drug Allergies Allergy Verified 10/28/20 07:27 Home Medication Medication Instructions Recorded multivitamin [Daily Multi-Vitamin] 1 ea PO DAILY PRN 04/26/16 diphenhydramine HCl [Benadryl] 25 mg PO HS PRN 05/23/16 acetaminophen 500 mg PO Q6H PRN PRN #60 tab 10/13/19 cetirizine 10 mg PO DAILY PRN 10/13/19 levothyroxine 175 mcg tablet 175 mcg PO DAILY #90 tab 01/25/20 cholecalciferol (vitamin D3) 1,250 50,000 unit PO weekly #12 tab-cap 07/13/20 mcg (50,000 unit) capsule lorazepam 1 mg tablet 1 mg PO DAILY PRN #20 tab 07/13/20 bisacodyl 5 mg tablet,delayed 5 mg PO ONCE #4 tab 10/13/20 release polyethylene glycol 3350 17 238 g PO ONCE #238 g 10/13/20 gram/dose oral powder venlafaxine 75 mg capsule,extended 75 mg PO DAILY #90 cap 10/18/20 release 24 hr Current Visit Medications: Current Medications Generic Name Dose Route Start Last Admin Trade Name Lit PRN Reason Stop Dose Admin Hyoscyamine Sulfate 0.125 mg 10/27/20 18:06 Hyoscyamine 0.125 Mg Sl/Oral/Chew SL DIRECTED PRN Ringer's Solution 1,000 mls @ 80 mls/hr 10/28/20 06:00 10/28/20 07:47 IV 11/26/20 23:59 80 mls/hr INFUSION NADEGE Administration IV Miscellaneous Supplies 1 each 10/28/20 06:00 Iv Access IV 11/26/20 23:59 DIRECTED NADEGE Sodium Chloride 0 ml 10/28/20 06:00 Normal Saline Flush 10 Ml Syr IV 11/26/20 23:59 PRN PRN Sodium Chloride 0 ml 10/28/20 06:00 Normal Saline 10 Ml Vial IJ 11/26/20 23:59 DIRECTED PRN Sterile Water 0 ml 10/28/20 06:00 Water,Injection,Sterile 10 Ml Vial IJ 11/26/20 23:59 DIRECTED PRN PFSH Active Problems Active Problems: Problem Status Onset Code Colon cancer screening Z12.11 Essential hypertension I10 Chronic low back pain M54.5, G89.29 Abdominal discomfort R10.9 Constipation K59.00 Nausea R11.0 History of diverticulitis Z87.19 Tendinitis of left flexor hallucis longus M77.52 Acute diverticulitis K57.92 Diarrhea R19.7 Occult fracture of bone Left ankle pain M25.572 Status post arthroscopy of right knee 10/13/19 Z98.890 Vitamin D deficiency 04/17/16 E55.9 Tonsillar calculus 05/20/17 J35.8 Right anterior knee pain 03/29/17 M25.561 Morbid obesity 04/26/16 E66.01 Malignant tumor of thyroid gland 04/17/16 C73 Malignant tumor of breast 04/17/16 C50.919 Malignant neoplasm of unspecified site of right female breast 04/17/16 C50.911 History of food anaphylaxis 05/23/16 Z91.018 Hand dermatitis L30.9 Goiter 04/26/16 E04.9 Anxiety 04/17/16 F41.9 Adjustment disorder with mixed anxiety and depressed mood 06/18/16 F43.23 Achilles tendinitis of right lower extremity 06/29/16 M76.61 Ocular hypertension, bilateral H40.053 Encounter for screening colonoscopy Z12.11 Acquired pes planus of both feet 04/26/16 M21.41, M21.42 Elevated blood pressure reading in office with diagnosis of hypertension I10 Chronic rhinitis J31.0 Post-nasal drip R09.82 Angioedema T78.3XXA Nasal turbinate hypertrophy J34.3 Nasal valve collapse J34.89 Deviated nasal septum J34.2 Tonsillar hypertrophy J35.1 Hives L50.9 Sneezing R06.7 Postoperative pain G89.18 Instability of right knee joint M25.361 Atrophy of nasal turbinates J34.89 Colon cancer screening Z12.11 Routine general medical examination at a health care facility Z00.00 Eczema L30.9 Hypothyroidism E03.9 Hot flashes R23.2 Depression 04/17/16 F32.9 Vasomotor symptoms due to menopause N95.1 S/P laparoscopic hysterectomy Z90.710 Obesity E66.9 Hand dermatitis L30.9 Elevated blood pressure reading in office with diagnosis of hypertension I10 Snoring R06.83 BMI 45.0-49.9, adult Z68.42 Hypothyroidism (acquired) E03.9 Uterine fibroid Ovarian cyst Breast, Mastectomy Bilateral 09/03/13 Thyroid 06/30/13 Medical History Medical History BMI 45.0-49.9, adult Depression (04/17/16) Elevated blood pressure reading in office with diagnosis of hypertension Essential hypertension Hand dermatitis History of diverticulitis 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 R invasive ductal carcinoma. ER+/ID+/Her2-. Rx with tamoxifen stopped after the year secondary to side effects. BRCA / Neg. 11/2017. Additional testing shows no heritable predisposition to cancer. Hx of eczema significant hands and fingers Hypothyroidism Hypothyroidism (acquired) Secondary to thyroidectomy for thyroid nodules. Obesity Ovarian cyst 2015 pelvic ultrasound: 2 x 1.6 cm and 2.3?2.4 CL cysts R ovary. Left ovary not visualized. Problem of right upper extremity PT REQUESTS NO IV, BP RIGHT ARM Snoring Uterine fibroid 2015 multiple uterine fibroids: 6 cm subserosal fibroid. Size: 10 x 6 x 5 cm. Normal ES. Vasomotor symptoms due to menopause Surgical History Surgical History Breast, Mastectomy Bilateral (09/03/13) 42 years old. ER+/ID+/Her2-. Mastectomy with implant reconstruction. History of removal of cyst pt. reports above R breast Hx of tooth extraction S/P laparoscopic hysterectomy With bilateral salpingo-oophorectomy. Status post arthroscopy of right knee (10/13/19) s/p Right Knee Partial Medial Menisectomy and Lateral Tibial Chondroplasty Thyroid (06/30/13) total thyroidectomy at 42 years old secondary to thyroid nodules and Arash's Tobacco Smoking/Tobacco Use Status: Former Tobacco Use Tobacco: How many years used: 20 Passive smoking exposure: No Second hand exposure: No Alcohol Alcohol Intake: current Alcohol intake frequency: a few times a week Alcohol type: beer and wine Substance Use Substance use: Never Substance use type: does not use Details: alcohol: unknown Prental History History 1 Para 0 Hx # Term Pregnancies 0 Multiple births Hx # Pregnancies Ectopic pregnancies AB induced Hx Number of Living Children 0 AB spontaneous 1 Vital Signs and Lab Results Vital Signs Most Recent Vital Signs in EMR: Most Recent Vital Signs Temp Pulse Resp BP Pulse Ox 36.2 C L 69 18 139/95 H 96 10/28/20 07:15 10/28/20 07:15 10/28/20 07:15 10/28/20 07:15 10/28/20 07:15 Lab Results Blood Type / Crossmatch: No Data to Display Complete Blood Count: No Data to Display Complete Metabolic Panel: No Data to Display Liver Function Panel: No Data to Display Coagulation Panel: No Data to Display Cardiac Panel: No Data to Display Arterial Blood Gas: No Data to Display Venous Blood Gas: No Data to Display Pancreas Panel: No Data to Display Thyroid Panel: No Data to Display Infectious Disease: No Data to Display Blood Cultures: No Data to Display Toxicology Panel: No Data to Display Panel: No Data to Display Anesthesia Assessment and Plan Anesthesia History Personal History: PONV Family History: No Family History of Anesthesia Complications Exercise Tolerance Exercise Tolerance: Metabolic Equivalents>4 Pertinent Negatives Pertinent Negatives: No Symptoms of GERD, No Major Cardiovascular Symptoms or Complaints, No Major Pulmonary Symptoms or Complaints and No History of CVA/TIA Cardiac & Pulmonary Exam Cardiac Exam: Normal S1/S2 Heart Sounds Pulmonary Exam: Clear Bilateral Breath Sounds Airway Exam Known Difficult Airway: No Mallampati Class: 2 Mouth Opening: Normal (> 3cm) Thyromental Distance: Greater than 3 cm Neck Range of Motion: Full ROM Neck Circumference: Normal Teeth Condition: Normal Dentition ASA Classification ASA Score: ASA 3 Emergency Case?: No NPO Status NPO Status: NPO Clears >2 hours, Solids >8 hours Status Status: History of Hysterectomy Anesthesia Plan Resuscitation Status: Full Code Anesthesia Technique: General Anesthesia Airway Planned: Natural Airway Monitors Used: Standard Monitors
[2020-10-28 08:23] VITALS: BMI 42.7
--- NOTE | 2020-10-28 08:47 | PDOC.DSDIS_ITS ---
Discharge Plan Disposition Patient Disposition: HOME Condition: Good Discharge Details Reason For Visit: colon scope Attending Provider: Lilian Osorio Primary Care Provider: Luisana Ayala Home Meds and New Rx's Prescriptions: Continued venlafaxine 75 mg capsule,extended release 24hr 75 mg PO DAILY Qty: 90 RF: 3 lorazepam 1 mg tablet 1 mg PO DAILY PRN (Reason: anxiety) Qty: 20 RF: 0 cholecalciferol (vitamin D3) 1,250 mcg (50,000 unit) capsule 50,000 unit PO weekly Qty: 12 RF: 3 multivitamin [Daily Multi-Vitamin] 1 EACH tablet 1 ea PO DAILY PRNRF: 0 diphenhydramine HCl [Benadryl] 25 MG capsule 25 mg PO HS PRNRF: 0 levothyroxine 175 mcg tablet 175 mcg PO DAILY Qty: 90 RF: 3 cetirizine 10 mg Tablet 10 mg PO DAILY PRNRF: 0 acetaminophen 500 mg tablet 500 mg PO Q6H PRN PRN (Reason: pain) Qty: 60 RF: 3 Discontinued polyethylene glycol 3350 17 gram/dose powder 238 g PO ONCE Qty: 238 RF: 0 bisacodyl [Dulcolax (bisacodyl)] 5 mg tablet,delayed release (DR/EC) 5 mg PO ONCE Qty: 4 RF: 0 Discharge Instructions Additional Instructions: DSU Colonoscopy Post- Op Instructions Instructions for Everyone who is given Anesth esia: For your safety, please do the following for the next twenty-four (24) hours: *Do Not operate a motor vehicle (car, truck, motorcycle, etc.) *Do Not drink alcoholic beverages or use any recreational drugs for the first 24 hours or while taking pain medications. The medications in your body may have a reaction that can be dangerous. *Do Not make any important decisions or sign any important papers. Findings: moderate diverticula *Severe sleep apnea- needs to go for sleep study Follow up: high fiber diet Make sure you are moving your bowels on a regular basis and not straining to go to the bathroom 1. No lifting over 20 pounds or strenuous activity for the first 24 hours after your procedure. After 24 hours there are no restrictions on your activity but you may feel fatigued for a few days. 2. After you arrive home you may have a light meal and return to your normal diet as you can tolerate it without feeling sick to your stomach. 3. You may have a bloated, gaseous feeling in your belly (abdomen) after a colonoscopy. Passing gas and belching will help. Walking or lying down on your left side with your knees flexed may relieve the discomfort. Call the office at [phone] (Office) or [phone] (Hospital) right away if you notice any of the following: a.Vomiting of blood or ?coffee ground stools?. b.Rectal bleeding 1Tbsp, blood clots or continuous bleeding. c.Severe belly (abdominal) pain. d.A hard distended belly (abdomen) and an inability to pass gas. 4. Please don?t expect to have a normal BM (bowel movement) for 2-3 days after y our procedure. 5. If there are questions regarding the findings of your procedure, please contact your doctor 6. If you are unable to contact your doctor with a problem, contact the hospital at [phone]. 7. Continue all your regular medications unless directed otherwise. I understand the above instructions and have no questions. Signature of Patient or Adult Escort Name of Responsible Adult Escort Signature of Nurse Date/Time Activity:: see above Diet:: see above Discharge Orders Discharge Orders: Discharge Order (Routine); Ordered 10/27/20 Ordered By: Lilian Osorio DS: Diagnosis Discharge Diagnosis (1) Diverticula of colon: Status: Acute (2) Observed sleep apnea: Status: Acute
--- NOTE | 2020-10-28 09:28 | W.COLOREPORT ---
Date of service: 10/28/20 Time of Service: 09:28 Colonoscopy Report Date of procedure: 10/28/20 Pre-op diagnosis general: diverticula Post-op diagnosis procedure note: same Surgeon: Lilian Osorio Anesthesia Type: General LMA/ETT Estimated blood loss (mL): 0 Pathology: none sent Complications: None Disposition: same day Prep: Miralax/Dulcolax Retraction Time: 9 Procedure Description: After informed consent was obtained the patient was taken to the procedure room and placed in a left decubitous position. Monitors were applied and a time out was done. The patients name, date of , procedure, allergies to medications and metal in their body was reviewed. The patient was then sedated. Once sedated and comfortable a rectal exam was done. External hemorrhoids Internal exam revealed a normal sphincter tone and no palpable masses. The scope was then introduced and retrofelexed. No internal hemorrhoids were identified. The scope was then advanced to the cecum without difficulty. The TI and appendiceal orifice were identified. The prep was good. The scope was then slowly retracted over 9 minutes back into the rectum. There were no polyps or AVMs visualized today. She does have moderate diverticular disease confined to the sigmoid colon. There is no signs of active bleeding or infection. Patient does have a very sharp turn coming out of the pelvis, most likely from her previous hysterectomy. Patient has pretty severe sleep apnea. She definitely needs to go for a sleep study and requires CPAP. She did tolerate d the procedure. The scope was removed and the patient was woken up and taken back to Same day surgery in stable condition. She did not tolerate MAC very well, this is related to her body habitus and occluding her airway. She was taken to PACU for postop recovery. The patient tolerated the procedure well and there were no immediate complications. Follow up: The patient should follow up in 10 years unless they develop changes in bowel habits or other new gastrointestinal complaints.
[2020-10-28 09:30] VITALS: BP 130/74; PULSE 58; RESP 16; TEMP 36; O2SAT 97
--- NOTE | 2020-10-28 09:31 | W.ANESPOSTOP ---
Postoperative Evaluation Date, Time and Location Date Performed: 10/28/20 Time Performed: 09:31 Patient Location: Day Surgery Unit Vital Signs Most Recent Imported Vital Signs: Most Recent Vital Signs Temp Pulse Resp BP Pulse Ox 36.2 C L 69 18 139/95 H 96 10/28/20 07:15 10/28/20 07:15 10/28/20 07:15 10/28/20 07:15 10/28/20 07:15 Most Recent Manually Entered Vital Signs: Adult Blood Pressure: 139/74 Heart Rate: 59 Respirations: 12 Oxygen Saturation (%): 96 Temperature (C): 36 C Pain Score (0-10 Scale): 0 Assessment Mental Status: Awake (Alert & Oriented to Patient Baseline) Airway and Respiratory Function: Patent airway with normal (patient baseline) respiratory exam Cardiovascular Function: Hemodynamically Stable Hydration Status: Adequately Hydrated Nausea & Vomiting: No Nausea or Vomiting Pain: Pt. Denies Any Pain Peripheral Nerve Block: Patient did not receive a nerve block
[2020-10-28 09:32] VITALS: BP 139/74; PULSE 59; RESP 12; TEMPC 36; O2SAT 96
[2020-10-28 10:00] VITALS: BP 137/92; PULSE 56; RESP 16; TEMP 36; O2SAT 99
[2021-01-23 13:07] LABS: Hemoglobin A1C 5.4 % (<5.7)
[2021-01-23 13:26] LABS: ALT 26 U/L (14-59); AST 14 U/L (15-37); Albumin 3.5 g/dL (3.4-5.0); Alkaline Phosphatase 83 U/L (46-116); Anion Gap 7.5 mmol/L (3-11); BUN 20 mg/dL (7-18); Bilirubin, Total 0.3 mg/dL (0.2-1.0); CO2 30.5 mmol/L (21.0-32.0); CREATININE 0.7 mg/dL (0.55-1.02); Calcium 8.6 mg/dL (8.5-10.1); Calculated LDL 200 mg/dL (<100); Chloride 102 mmol/L (98-107); Cholesterol 267 mg/dL (<200); Glucose 89 mg/dL (74-106); HDL Cholesterol 53 mg/dL (40-60); Potassium 4.3 mmol/L (3.5-5.1); Sodium 140 mmol/L (136-145); TSH (W/Ref FT4) 17.17 uIU/mL (0.36-3.74); Total Protein 6.6 g/dL (6.4-8.2); Triglyceride 71 mg/dL (<150)
[2021-01-23 13:54] LABS: FREE T4 1.13 ng/dL (0.76-1.46)
== END 2020-10-28 10:20 | disposition home or self-care (01) ==
PROVIDERS: PCP Nurse Practitioner; Visit Provider Surgery
PROC: 0DJD8ZZ Inspection of Lower Intestinal Tract, Via Natural or Artificial Opening Endoscopic (ICD-10-PCS; CPT 45378; principal; 2020-10-28 08:15)
DX: K57.30 Diverticulosis of large intestine without perforation or abscess without bleeding (principal); G47.30 Sleep apnea, unspecified; E03.9 Hypothyroidism, unspecified; E11.9 Type 2 diabetes mellitus without complications; E66.01 Morbid (severe) obesity due to excess calories; I10 Essential (primary) hypertension
CPT/HCPCS: 45378; J2001; J2250

== ENCOUNTER 2021-01-23 02:01 | Outpatient (CLI) | payer MEDICAID, SELFPAY ==
--- OUTSIDE RECORDS SUMMARY | 2021-01-23 02:02 | XMS_ITS ---
:1970 Author Care Team Providers Name Role Phone [facility] Primary Care Provider Unavailable Allergies Code Code Name Reaction Severity Status Onset System Shellfish Anaphylaxis ? Active ? Derived 3642 RxNorm Doxycycline Vomiting ? Deactivated ? Notes: allergic to clams Medications Name Status Start Date Stop Date ? ? Aleve Unknown ? Not available alprazolam 0.25 mg tablet Unknown ? Not av ailable alprazolam 0.5 mg tablet Unknown ? Not zeeshan ilable alprazolam 1 mg tablet Active ? Not avail able azithromycin 250 mg tablet Unknown ? Not a vailable TAKE 2 TABLETS BY MOUTH TODAY, THEN TAKE 1 TABLET DAILY FOR 4 D AYS calcitriol 0.25 mcg capsule Unknown ? Not available calcium cit 315 mg-ergocalciferol Unknown ? Not available (vitamin D2) 5 mcg (200 unit) tablet cephalexin 500 mg capsule Unknown ? Not av ailable TAKE ONE CAPSULE EVERY 6 HOURS citalopram 10 mg tablet Unknown ? Not avai lable Take 1 tablet every day by oral route for 30 days. citalopram 20 mg tablet Active ? Not avai lable clobetasol 0.05 % topical ointment Active ? Not available EpiPen 2-Fausto 0.3 mg/0.3 mL injection, Active ? Not available auto-injector escitalopram 10 mg tablet Unknown ? Not av ailable Fish Oil Unknown ? Not available Guaiatussin AC 10 mg-100 mg/5 mL oral liquid Completed ? 07/10/2013 Take 5 mL 3 times a day by oral route for 7 days. ibuprofen 800 mg tablet Unknown ? Not avai lable levothyroxine 150 mcg tablet Unknown ? Not available take 1 tablet daily levothyroxine 175 mcg tablet Active ? Not available multivitamin with iron Active ? Not avail able once a day nystatin-triamcinolone 100,000 unit/g-0.1 % topical cream Unknow n ? Not available APPLY TO THE AFFECTED AREA(S) BY TOPICA L ROUTE 2 TIMES PER DAY IN THEMORNING AND EVENING ondansetron HCl 4 mg tablet Unknown ? Not available TAKE 1 TABLET BY MOUTH EVERY 8 HOURS NEEDED FOR NAUSEA AND V OMITING oxycodone 5 mg tablet Unknown ? Not availa ble TAKE 1 TO 2 TABLETS BY MOUTH EVERY 4 HOURS NEEDED oxycodone-acetaminophen 5 mg-325 mg Unknown ? Not available tablet tamoxifen 20 mg tablet Active ? Not avail able Vitamin C Active ? Not available Vitamin D2 1,250 mcg (50,000 unit) Active ? Not available capsule Problems Name Status Onset Date Source ? Primary Malignant Neoplasm of Female Breast Active ? Encounter Malignant Tumor of Breast Unknown ? Encoun ter Malignant Tumor of Breast Active ? Encoun ter Malignant Tumor of Thyroid Gland Active ? Encounter Thyroid Nodule Unknown ? Encounter Non-toxic Multinodular Goiter Unknown ? En counter Postoperative Hypothyroidism Active ? Enc ounter Vitamin D Deficiency Active ? Encounter Morbid Obesity Active ? Encounter Anxiety Active ? Encounter Depressive Disorder Active ? Encounter Bronchitis Unknown ? Encounter Cyst of Ovary Unknown ? Encounter Intermenstrual Bleeding - Irregular Unknown ? Encounter Contact Dermatitis Unknown ? Encounter Keloid Scar Unknown ? Encounter Eruption Active ? Encounter Edema Unknown ? Encounter Cough Unknown ? Encounter Mammographic Breast Mass Unknown ? Encount er Elevated Blood-pressure Reading without Unknown ? Encounter Diagnosis of Hypertension Food Anaphylaxis Active ? Encounter Specialized Medical Examination Unknown ? Encounter Procedures Date Name Performed by ? 11/16/2013 Other Information not avai lable Notes: implants replaced 09/03/2013 Mastectomy Information not avai lable 06/30/2013 Thyroidectomy Information not avai lable Notes: total 01/16/2011 Other Information not avai lable Notes: Removal of mass on chest 01/23/2012 Routine Mammography Exam, Screening [facility] (Central Scheduling For Imaging And Labs) [address] [place] [address] (Work Place) 01/23/2012 Mammogram, Screening Information not zeeshan ilable 07/03/2012 Mammogram, Screening [facility] (Central Scheduling For Imaging And Labs) [address], [place] [id number] (Work Place) 02/19/2013 Routine Mammography Exam, Screening [facility] (Central Scheduling For Imaging And Labs) [address], [place] [id number] (Work Place) 02/19/2013 Ultrasound, Thyroid [facility] (Central Scheduling For Imaging And Labs) [address] [place] [address] (Work Place) 07/27/2013 Needle Core Biopsy, Breast, [facility] (Central Scheduling For Imaging And Labs) Ultrasound Guided [address] [place] [address] (Work Place) 07/30/2013 Ultrasound, Pelvic Transabdominal & [facility] (Central Scheduling For Imaging And Labs) Transvaginal [address] [place] [address] (Work Place) 09/22/2013 MRI, Pelvis [facility] (Central Scheduling For Imaging And Labs) [address] [place] [address] (Work Place) Results Lab Results Date Name Specimen Result Interpretation Description Value Range Status Address ? 06/24/2014 Cbc ? Hgb 12.3 g/dL 12.0-16.0 Final [facility] g/dL [facility] (Lab): [address] ? ? ? Hct 36.9 % 36.0-48.0 Final [facility] (Lab): [address] ? ? ? Wbc 8.1 K/mm3 4.0-11.0 Final [place] K/mm3 [facility] (Lab): [address] ? ? ? Rbc 4.09 4.00-5.20 Final [facility] M/mm3 M/mm3 [facility] (Lab): [address] ? ? ? Mcv 90.2 fL 79.0-97.0 Final [facility] fL [facility] (Lab): [address] ? ? ? Mch 30.2 pg 27.0-32.0 Final [facility] est pg [facility] (Lab): [address] ? ? ? Mchc 33.5 g/dL 32.0-36.0 Final [place] g/dL [facility] (Lab): [address] ? ? High Rdw 14.6 % 11.5-14.5 Final [facility] (Lab): [address] ? ? ? Plt 285 K/mm3 150-400 Final [place] [place] K/mm3 [facility] (Lab): [address] ? ? ? Note ? ? Final [facility] (Lab): [address] 06/24/2014 BMP, Serum or ? Sodium 142 135-145 Samantha l [facility] Plasma mmol/L mmol/L [facility] (Lab): [address] ? ? ? Potassium 4.8 3.5-5.1 Final [place] mmol/L mmol/L [facility] (Lab): [address] ? ? ? Chloride 104 96-[address] mmol/L mmol/L [facility] (Lab): [address] ? ? ? Carbon 26 mmol/L 24-32 Final [facility] Dioxide mmol/L [facility] (Lab): [address] ? ? ? Anion Gap 12 mmol/L 4-14 Final Met rowest mmol/L [facility] (Lab): [address] ? ? ? Glucose 91 mg/dL 70-105 Final [place] mg/dL [facility] (Lab): [address] ? ? ? Bun 13 mg/dL 8-21 mg/dL Final [place] [facility] (Lab): [address] ? ? ? Creatinine 0.68 0.51-0.95 Final Me trowest mg/dL mg/dL [facility] (Lab): [address] ? ? ? Estimated GFR > 60 >60 mL/min Final [facility] mL/min [facility] (Lab): [address] ? ? ? Estimated > 60 >60 mL/min Final Me trowest GFR, mL/min [facility] Ce nter a [facility] (Lab): [address] ? ? ? Calcium 9.2 mg/dL 8.6-10.3 Final Met rowest mg/dL [facility] (Lab): [address] ? ? ? Note ? ? Final [facility] (Lab): [address] 06/24/2014 Lipid Panel, ? Cholesterol 198 mg/dL <200 mg/dL Final [facility] Serum [facility] (Lab): [address] ? ? ? Triglycerides 84 mg/dL <200 mg/dL Fin al [facility] (Lab): [address] ? ? ? HDL 42 mg/dL ? Final [place] [facility] Cholesterol [facility] (Lab): [address] ? ? ? LDL 139 mg/dL <159 mg/dL Final [facility] rowest Cholesterol [facility] (Lab): [address] ? ? ? chol/HDL 4.71 ? [facility] (Lab): [address] ? ? High Coronary Risk 1.11 0.00-1.00 Final [facility] Factor [facility] (Lab): [address] ? ? ? Note ? ? Final [facility] (Lab): [address] 06/24/2014 Vitamin Low Vitamin D 13 NG/mL >30 NG/mL Fin [facility] D,25-Hydroxy 25-Oh Medi larry [facility] (Lab): [address] ? ? ? Note ? ? Final [facility] (Lab): [address] 06/24/2014 TSH, Serum or ? Tsh 2.320 0.270-4.20 Fi nal [facility] Plasma mciu/mL 0 mciu/mL [facility] (Lab): [address] ? ? ? Note ? ? Final [facility] (Lab): [address] 01/19/2014 TSH, Serum or ? Tsh 1.570 0.270-4.20 Fi nal [facility] Plasma mciu/mL 0 mciu/mL [facility] (Lab): [address] ? ? ? Note ? ? Final [facility] (Lab): [address] 01/19/2014 TSH, Serum or ? Tsh 1.570 0.270-4.20 Fi nal [facility] Plasma mciu/mL 0 mciu/mL [facility] (Lab): [address] [place] ? ? ? Note ? ? Final [facility] (Lab): [address] , [place] 01/19/2014 T4, Free, ? Free T4 1.53 0.93-1.70 Final [facility] Serum NG/dL NG/dL [facility] (Lab): [address] , [place] ? ? ? Note ? ? Final [facility] (Lab): [address] , [place] 01/19/2014 T4, Free, ? Free T4 1.53 0.93-1.70 Final [facility] Serum NG/dL NG/dL [facility] (Lab): [address] [place] ? ? ? Note ? ? Final [facility] (Lab): [address] , [place] 01/19/2014 TSH + Free ? No observation ? ? ? T4, Serum recorded. 10/01/2013 TSH, Serum or ? Tsh 1.710 0.270-4.20 Fi [facility]u/[facility] (Lab): [address] [place] ? ? ? Note ? ? Final [facility] (Lab): [address] [facility] 09/03/2013 Type and ? Blood Group A ? Final [facility]- [facility]: [address] , [place] ? ? ? Rh Type positive ? Final [facility]- [facility]: [address], [place] ? ? ? Antibody negative ? Final [facility]- [facility]: [address], [place] ? ? ? Note ? ? Final [facility]- [facility]: [address], [place] 09/03/2013 Lab Result ? Results ? ? ? [facility]- [facility]: [address], [place] ? ? ? Note ? ? Final [facility]- [facility]: [address], [place] 08/27/2013 Type and ? Blood Group A ? Final [facility]- [facility]: [address], [place] ? ? ? Rh Type positive ? Final [facility]- [facility]: [address], [place] ? ? ? Antibody negative ? Final [facility]- [facility]: [address], [place] ? ? ? Note ? ? Final [facility]- [facility]: [address], [place] 08/27/2013 Culture, Mrsa ? Source: nose ? [facility]- [facility]: [address], [place] ? ? ? Result(s): negative ? Final [facility] : in-resist [address], aureus [place] ? ? ? Report final ? Final [facility] t Status: Hospital- [facility]: [address], [place] ? ? ? Note ? ? Final [facility]- [facility]: [address], [place] 08/27/2013 Culture, Mrsa ? Source: throat ? [facility]- [facility]: [address], [place] ? ? ? Result(s): negative ? Final [facility] : in-resist [address], aureus [place] ? ? ? Report final ? Final [facility] Status: Hospital- [facility]: [address], [place] ? ? ? Note ? ? Final [facility]- [facility]: [address], [place] 08/27/2013 CBC W/ Auto ? White Blood 7.8 3.9-11.0 Final [facility] Diff Count x1000/uL x1000/uL Hospit al- [facility]: [address], [place] ? ? ? Red Blood 4.14 3.70-5.10 Final [facility] Cell Count mil/uL mil/uL Hospit al- [facility]: [address], [place] ? ? ? Hemoglobin 12.5 g/dL 11.5-15.0 Final [facility] g/dL Hospital- [facility]: [address], [place] ? ? ? Hematocrit 37.6 % 34.0-44.0 Final [facility] % Hospital- [facility]: [address], [place] ? ? ? Mcv 91 fL 80-[address] [facility]- [facility]: [address], [place] ? ? ? Mch 30 pg 27-33 pg Final [facility]- [facility]: [address], [place] ? ? ? Mchc 33 g/dL 31-36 g/dL Final [facility]- [facility]: [address] , [place] ? ? ? Rdw 14.0 % 11.4-14.4 Final [facility]- [facility]: [address] , [place] ? ? ? Platelet 307 150-450 Final [facility] x1000/uL x1000/uL Hospit al- [facility]: [address] , [place] ? ? High Mpv 11.2 fL 7.0-11.0 Final [facility]- [facility]: [address] , [place] ? ? ? Neutrophils 70 % 42-76 % Final [facility]- [facility]: [address] , [place] ? ? ? Lymphocytes 21 % 14-46 % Final [facility]- [facility]: [address] , [place] ? ? ? Monocytes 8 % 4-13 % Final [facility]- [facility]: [address] , [place] ? ? ? Eosinophils 1 % 0-7 % Final [facility]- [facility]: [address] , [place] ? ? ? Basophils 0 % 0-3 % Final [facility]- [facility]: [address] , [place] ? ? ? Neutrophils 5.5 1.8-7.0 Final [facility] (#) x1000/uL x1000/uL Hospit al- [facility]: [address] , [place] ? ? ? Lymphocytes 1.6 0.7-4.5 Final [facility] (#) x1000/uL x1000/uL Hospit al- [facility]: [address] , [place] ? ? ? Monocytes (#) 0.6 0.1-0.8 Final [facility] x1000/uL x1000/uL Hospit al- [facility]: [address] , [place] ? ? ? Eosinophils 0.1 0.0-0.4 Final [facility] (#) x1000/uL x1000/uL Hospit al- [facility]: [address] , [place] ? ? ? Basophils (#) 0.0 0.0-0.2 Final [facility] x1000/uL x1000/uL Hospit al- [facility]: [address] , [place] ? ? ? Note ? ? Final [facility]- [facility]: [address] [facility] 08/27/2013 BMP, Serum or ? Glucose 77 mg/dL 65-99 Fi [facility] Plasma mg/dL Hospital- [facility]: [address] [facility] ? ? ? Bun 16 mg/dL 5-26 mg/dL Final [facility] Hospital- [facility]: [address] [facility] ? ? ? Creatinine 0.72 0.5-1.5 Final [facility] mg/dL mg/dL Hospital- [facility]: [address] [facility] ? ? ? BUN/creat 22 8-27 Final [facility] Ratio Hospital- [facility]: [address] [facility] ? ? ? Glom Filt 101.8 > 59 Final [facility] Rate, Est mL/min mL/[facility] [address] [facility] ? ? ? If 118.0 > 59 Final [facility] mL/min mL/min Ho spital- an [facility]: [address] [facility] ? ? ? Sodium 138 mEq/L 134-144 Final [facility] mEq/L Hospital- [facility]: [address] [facility] ? ? ? Potassium 4.3 mEq/L 3.5-5.5 Final [facility] mEq/L Hospital- [facility]: [address] [facility] ? ? ? Chloride, 103 mEq/L 96-109 Final [facility] Serum mEq/L Hospital- [facility]: [address] [facility] ? ? ? Carbon 28 mEq/L 20-[address] [facility] ent Dioxide mEq/L Hospital- [facility]: [address] [facility] ? ? Low Anion Gap 7.0 8-[address] [facility]- [facility]: [address] [facility] ? ? ? Calcium 9.3 mg/dL 8.3-10.0 Final [facility] mg/dL Hospital- [facility]: [address] [facility] ? ? ? Note ? ? Final [facility]- [facility]: [address] [facility] 07/31/2013 Pap, IG + ? No observation ? ? ? [facility] HPV, Cervical recorded. [facility] 07/27/2013 Her2 by [facility] ? Her2 ([facility]) ? ? Fi nal [facility]: [address] [facility] ? ? ? Note ? ? Final [facility]- [facility]: [address] [facility] 07/08/2013 BMP, Serum or ? Sodium 137 135-145 Samantha l [facility] Plasma mmol/L mmol/L [facility] (Lab): [address] ? ? ? Potassium 4.4 3.5-5.1 Final [place] mmol/L mmol/L [facility] (Lab): [address] ? ? ? Chloride 99 mmol/L 98-106 Final [place] mmol/L [facility] (Lab): [address] ? ? ? Carbon 28 mmol/L 24-32 Final [facility] Dioxide mmol/L [facility] (Lab): [address] ? ? ? Anion Gap 10 mmol/L 4-14 Final Met rowest mmol/L [facility] (Lab): [address] ? ? ? Glucose 88 mg/dL 70-105 Final [facility] mg/dL [facility] (Lab): [address] ? ? High Bun 22 mg/dL 8-21 mg/dL Final [facility] [place] [facility] (Lab): [address] ? ? ? Creatinine 0.61 0.51-0.95 Final Me t[facility]est mg/dL mg/dL [facility] (Lab): [address] ? ? ? Estimated GFR > 60 >60 mL/min Final [facility] mL/min [facility] (Lab): [address] ? ? ? Estimated > 60 >60 mL/min Final Me trowest GFR, mL/min [facility] Ce nter a [facility] (Lab): [address] ? ? ? Calcium 9.2 mg/dL 8.5-10.5 Final Met rowest mg/dL [facility] (Lab): [address] ? ? ? Note ? ? Final [facility] (Lab): [address] [facility] [address] 01/26/2013 CBC W/diff ? Hgb 12.6 g/dL 12.0-16.0 Fin al [facility] g/dL [facility] (Lab): [address] , [place] ? ? ? Hct 38.2 % 36.0-48.[address] % Medical [facility] (Lab): [address] , [place] ? ? ? Wbc 7.3 K/mm3 4.0-11.0 Final [place] K/mm3 [facility] (Lab): [address] , [place] ? ? ? Rbc 4.19 4.00-5.[address] M/mm3 M/mm3 [facility] (Lab): [address] , [place] ? ? ? Mcv 91.3 fL 79.0-97.0 Final [facility] fL [facility] (Lab): [address] , [place] ? ? ? Mch 30.0 pg 27.0-32.0 [facility] (Lab): [address] [place] ? ? ? Mchc 32.8 g/dL 32.0-36.0 Final [place] g/dL [facility] (Lab): [address] [place] ? ? ? Rdw 13.9 % 11.5-14.[address] [facility] [address] [facility] (Lab): [address] [place] ? ? ? Plt 287 K/mm3 150-400 Final [facility] K/mm3 [facility] (Lab): [address] [place] ? ? ? Note ? ? Final [facility] Medical [facility] (Lab): [address] , [place] 01/26/2013 Basic ? Sodium 136 135-145 Final [facility] Metabolic mmol/L mmol/L [facility] Panel [facility] (Lab): [address] , [place] ? ? ? Potassium 4.5 3.5-5.1 Final [place] mmol/L mmol/L [facility] (Lab): [address] [place] ? ? ? Chloride 98 mmol/L 98-106 Final [place] mmol/L [facility] (Lab): [address] , [place] ? ? ? Carbon 26 mmol/L 24-32 Final [facility] Dioxide mmol/L [facility] (Lab): [address] ? ? ? Anion Gap 12 mmol/L 4-14 Final Met rowest mmol/L [facility] (Lab): [address] ? ? Low Glucose 68 mg/dL 70-105 Final [facility] mg/dL [facility] (Lab): [address] ? ? ? Bun 13 mg/dL 8-21 mg/dL Final [place] [place] [facility] (Lab): [address] ? ? ? Creatinine 0.67 0.51-0.95 Final Me trowest mg/dL mg/dL [facility] (Lab): [address] ? ? ? Estimated GFR > 60 >60 mL/min Final [facility] mL/min [facility] (Lab): [address] ? ? ? Estimated > 60 >60 mL/min Final Me trowest GFR, mL/min [facility] Ce nter a [facility] (Lab): [address] ? ? ? Calcium 8.5 mg/dL 8.5-10.5 Final Met rowest mg/dL [facility] (Lab): [address] ? ? ? Note ? ? Final [facility] (Lab): [address] 01/26/2013 Lipid Panel ? Cholesterol 193 mg/dL 100-20 0 Final [facility] W/ Calculated mg/dL Med ical LDL [facility] (Lab): [address] ? ? ? Triglycerides 71 mg/dL <200 mg/dL [facility] [address] ? ? ? HDL 44 mg/dL ? Final [facility] t Cholesterol [facility] (Lab): [address] ? ? ? LDL 135 mg/dL <159 mg/dL Final Met rowest Cholesterol [facility] (Lab): [address] ? ? ? chol/HDL 4.39 ? Final [address] Ratio [facility] (Lab): [address] ? ? ? Coronary Risk 0.98 0.00-1.00 Final [facility] Factor [facility] (Lab): [address] ? ? ? Note ? ? Final [facility] (Lab): [address] [facility] [address] 01/26/2013 Vitamin Low Vitamin D 12 NG/mL >30 NG/mL Fin cherelle [facility] D,25-Hydroxy 25-Oh [facility] (Lab): [address] ? ? ? Note ? ? Final [facility] (Lab): [address] [facility] [address] 01/26/2013 Thyroid ? Tsh 1.130 0.270-4.20 Final etrowest Stimulating mciu/mL 0 mciu/mL M edical Hormone (TSH) [facility] (Lab): [address] ? ? ? Note ? ? Final [facility] (Lab): [address] [facility] 05/22/2012 Vitamin Low Vitamin D 12 NG/mL >30 NG/mL Fin cherelle [facility] D,25-Hydroxy 25-Oh [facility] (Lab): [address] [facility] [address] ? ? ? Note ? ? Final [facility] (Lab): [address] [facility] 05/22/2012 Rast, Food ? Rast, Food comment () Michael villarreal [facility] Allergy Allergy Medical Panel,adult Panel,adult [facility] (Lab): [address] ? ? ? Note ? ? Final [facility] (Lab): [address] [facility] [address] 01/28/2012 CBC W/diff ? Hgb 12.3 g/dL 12.0-16.0 Michael villarreal [facility] g/dL [facility] (Lab): [address] ? ? ? Hct 37.5 % 36.0-48.0 Final [facility] % [facility] (Lab): [address] ? ? ? Wbc 7.8 K/mm3 4.0-11.0 Final [facility] (Lab): [address] ? ? ? Rbc 4.07 4.00-5.20 Final [facility] M/mm3 M/mm3 [facility] (Lab): [address] ? ? ? Mcv 92.0 fL 79.0-97.0 Final [facility] fL [facility] (Lab): [address] ? ? ? Mch 30.3 pg 27.0-32.0 Final [facility] est pg [facility] (Lab): [address] ? ? ? Mchc 32.9 g/dL 32.0-36.0 Final [place] [place] g/dL [facility] (Lab): [address] ? ? High Rdw 15.1 % 11.5-14.[address] [facility] [address] [facility] (Lab): [address] [facility] [address] ? ? ? Plt 275 K/mm3 150-400 Final [facility] K/mm3 [facility] (Lab): [address] ? ? ? Note ? ? [facility] [address] [facility] [address] 01/28/2012 Vitamin Low Vitamin D 10 NG/mL >30 NG/mL Fin al [facility] D,25-Hydroxy 25-Oh Medi larry [facility] (Lab): [address] [facility] [address] ? ? ? Note ? ? Final [facility] (Lab): [address] [facility] 01/28/2012 Lipid Panel ? Cholesterol 188 mg/dL 100-20 0 Final [facility] W/ Calculated mg/dL Med ical LDL [facility] (Lab): [address] [facility] ? ? ? Triglycerides 72 mg/dL <200 mg/dL [facility] ([facility] [address] [facility] ? ? ? HDL 45 mg/dL ? Final [place] [facility] (Lab): [address] [facility] ? ? ? LDL 129 mg/dL <159 mg/dL Final Met rowest Cholesterol [facility] (Lab): [address] [facility] ? ? ? chol/HDL 4.18 ? Final [address] Ratio [facility] (Lab): [address] [facility] ? ? ? Coronary Risk 0.89 0.00-1.00 Final Met[facility] Factor [facility] (Lab): [address] [facility] ? ? ? Note ? ? Final [facility] Medical [facility] (Lab): [address] [place] 01/28/2012 Basic ? Sodium 138 135-145 Final [place] Metabolic mmol/L mmol/L Medical [facility] (Lab): [address] [facility] ? ? ? Potassium 4.4 3.5-5.1 Final [place] mmol/L mmol/L [facility] (Lab): [address] [facility] ? ? ? Chloride 102 98-[address] mmol/L mmol/L [facility] (Lab): [address] [facility] ? ? ? Carbon 27 mmol/L 24-32 Final [place] est Dioxide mmol/L [facility] (Lab): [address] [facility] ? ? ? Anion Gap 9 mmol/L 4-14 Final [place] mmol/L [facility] (Lab): [address] [facility] ? ? ? Glucose 77 mg/dL 70-105 Final [place] est mg/dL [facility] (Lab): [address] [facility] ? ? ? Bun 17 mg/dL 8-21 mg/dL Final Metr [place]west [facility] (Lab): [address] [facility] ? ? ? Creatinine 0.68 0.51-0.95 Final Me trowest mg/dL mg/dL [facility] (Lab): [address] [facility] ? ? ? Estimated GFR > 60 >60 mL/min Final [place] mL/min [facility] (Lab): [address] [facility] ? ? ? Estimated > 60 >60 mL/min Final Me trowest GFR, mL/min [facility] (Lab): [address] [facility] ? ? ? Calcium 9.1 mg/dL 8.5-10.5 Final Met rowest mg/dL [facility] (Lab): [address] [facility] ? ? ? Note ? ? Final Metrowest [facility] (Lab): [address] [facility] 01/28/2012 Thyroid ? Tsh 1.570 0.270-4.20 Final M etrowest Stimulating mciu/mL 0 mciu/mL M edical Hormone (TSH) [facility] (Lab): [address] [facility] ? ? ? Note ? ? Final [facility] (Lab): [address] [facility] 01/28/2012 Rabies Ab, ? Rabies >/=0.5 . IU/mL Final [facility] Cami Antibody IU/mL [facility] (Lab): [address] [facility] ? ? ? Note ? ? Final [facility] (Lab): [address] [facility] 01/23/2012 Pap Smear ? Pap Smear, see ? Final [facility] Screen [facility] (Lab): [address] [facility] ? ? ? Note ? ? Final [facility] (Lab): [address] [facility] 01/23/2012 Surepath Pap ? No observation ? ? ? [facility] Smear & HPV recorded. [facility] Past Encounters None recorded. Social History Tobacco Smoking Status Former Smoker Vaccine List Vaccine Type Tdap 01/24/2012 Notes: Flu shot declined 15 Tdap declined for now she wants to look into her recordds Plan of Care Reminders Provider Appointments None ? ? recorded. Lab None ? ? recorded. Referral None ? ? recorded. Procedures None ? ? recorded. Surgeries None ? ? recorded. Imaging None ? ? recorded. Vitals 06/22/2015 03:00PM Follow Up 30 Height Weight BMI Blood Pressure 5 ft 6 in 275 lbs 44.4 kg/m2 142/92 mm[Hg] 10/22/2014 10:00AM Follow Up 30 Height Weight BMI Blood Pressure 5 ft 6 in 277 lbs 44.7 kg/m2 124/84 mm[Hg] 07/01/2014 11:00AM Physical 40 Height Weight BMI Blood Pressure 5 ft 5 in 277 lbs 46.1 kg/m2 128/88 mm[Hg] 03/23/2014 11:30AM Follow Up 30 Height Weight BMI Blood Pressure 5 ft 5 in 281 lbs 46.8 kg/m2 122/86 mm[Hg] 01/19/2014 10:20AM Follow Up Height Weight BMI Blood Pressure 5 ft 5 in 278 lbs 46.3 kg/m2 130/98 mm[Hg] 10/01/2013 09:20AM Follow Up Height Weight BMI Blood Pressure 5 ft 5 in 275 lbs 45.8 kg/m2 124/82 mm[Hg] 2013 10:30AM Post-OP 30 Height Weight BMI Blood Pressure 5 ft 5 in 191 lbs 31.8 kg/m2 130/88 mm[Hg] 08/19/2013 11:00AM New CA Dx Height Weight BMI Blood Pressure 5 ft 5 in 276 lbs 45.9 kg/m2 138/88 mm[Hg] 07/30/2013 11:00AM Follow Up Height Weight BMI Blood Pressure 5 ft 5 in 269 lbs 44.8 kg/m2 138/92 mm[Hg] 07/29/2013 10:00AM [place]-NO BILL Height Weight BMI Blood Pressure 5 ft 6 in 272 lbs 43.9 kg/m2 132/90 mm[Hg] 07/23/2013 11:45AM Follow Up Thyroid Height Weight BMI Blood Pressure 5 ft 6 in 277 lbs 44.7 kg/m2 132/80 mm[Hg] 07/03/2013 10:40AM Sick Today Est 20 Height Weight Blood Pressure 5 ft 5 in 140/98 mm[Hg] 04/14/2013 10:40AM Follow Up Height Weight BMI Blood Pressure 5 ft 5 in 265 lbs 44.1 kg/m2 122/80 mm[Hg] 04/14/2013 01:45PM Follow Up 15 Height Weight BMI Blood Pressure 5 ft 6 in 265 lbs 42.8 kg/m2 132/88 mm[Hg] 03/06/2013 08:30AM New Patient 45 Height Weight BMI Blood Pressure 5 ft 6 in 268 lbs 43.3 kg/m2 140/98 mm[Hg] 02/19/2013 12:40PM Physical 40 Height Weight BMI Blood Pressure 5 ft 5 in 265 lbs 44.1 kg/m2 120/94 mm[Hg] 05/22/2012 12:00PM Follow Up Height Weight BMI Blood Pressure 5 ft 5 in 259 lbs 43.1 kg/m2 122/100 mm[Hg] 03/31/2012 12:00PM Follow Up Height Weight BMI Blood Pressure 5 ft 5 in 265 lbs 44.1 kg/m2 132/96 mm[Hg] 01/23/2012 10:40AM New Patient 40 Height Weight BMI Blood Pressure 5 ft 5 in 254 lbs 42.3 kg/m2 140/100 mm[Hg]
== END 2021-01-23 02:02 | disposition home or self-care (01) ==
LOC: LOS 02:01
PROVIDERS: PCP Nurse Practitioner; Visit Provider Nurse Practitioner
DX: I10 Essential (primary) hypertension (principal); E03.9 Hypothyroidism, unspecified; E11.9 Type 2 diabetes mellitus without complications; E66.01 Morbid (severe) obesity due to excess calories
CPT/HCPCS: 36415; 80053; 80061; 83036; 84439; 84443

== ENCOUNTER 2021-04-11 04:16 | Outpatient (CLI) | payer MEDICAID, SELFPAY ==
[2021-04-11 10:50] LABS: Calculated LDL 175 mg/dL (<100); Cholesterol 248 mg/dL (<200); HDL Cholesterol 53 mg/dL (40-60); Triglyceride 101 mg/dL (<150)
[2021-04-11 11:15] LABS: FREE T4 1.36 ng/dL (0.76-1.46)
== END 2021-04-11 04:17 | disposition home or self-care (01) ==
LOC: LBO 04:17
PROVIDERS: PCP Nurse Practitioner; Visit Provider Nurse Practitioner
DX: E78.5 Hyperlipidemia, unspecified (principal); E03.9 Hypothyroidism, unspecified
CPT/HCPCS: 36415; 80061; 84439; 84443

== ENCOUNTER 2021-07-11 05:33 | Outpatient (CLI) | payer MEDICAID, SELFPAY | END 2021-07-11 05:34 | disposition home or self-care (01) | LOC: LBO 05:35 | PROVIDERS: PCP Nurse Practitioner; Visit Provider Nurse Practitioner ==

== ENCOUNTER 2021-07-27 02:20 | Outpatient (CLI) | payer MEDICAID, SELFPAY ==
--- OUTSIDE RECORDS SUMMARY | 2021-07-27 02:23 | XMS_ITS ---
:1970 Author Care Team Providers Name Role Phone Kevannette Primary Care Provider Unavailable Allergies Code Code Name Reaction Severity Status Onset System Shellfish Anaphylaxis ? Active ? Derived 3645 RxNorm Doxycycline Vomiting ? Deactivated ? Notes: [...] on chest 01/23/2012 Routine Mammography Exam, Screening [facility] (Central Scheduling For Imaging And Labs) [address], [place] [id number] (Work Place) 01/23/2012 Mammogram, Screening Information not zeeshan ilable 07/03/2012 Mammogram, Screening [facility] (Central Scheduling For Imaging And Labs) [address], [place] [id number] (Work Place) 02/19/2013 Routine Mammography Exam, Screening [facility] (Central Scheduling For Imaging And Labs) [address], [place] [id number] (Work Place) 02/19/2013 Ultrasound, Thyroid [facility] (Central Scheduling For Imaging And Labs) [address] [place] [address] (Work Place) 07/27/2013 Needle Core Biopsy, Breast, [facility] (Central Scheduling For Imaging And Labs) Ultrasound Guided [address] [place] [address] (Work Place) 07/30/2013 Ultrasound, Pelvic Transabdominal & [facility] (Central Scheduling For Imaging And Labs) Transvaginal [address] [place] [address] (Work Place) 09/22/2013 MRI, Pelvis [facility] (Central Scheduling For Imaging And Labs) [address] [place] [address] (Work Place) Results Lab Results Date Name Specimen Result Interpretation Description Value Range Status Address ? 06/24/2014 Cbc ? Hgb 12.3 g/dL 12.0-16.0 Final [facility] g/dL [facility] (Lab): [address] [facility] ? ? ? Hct 36.9 % 36.0-48.0 Final [facility] (Lab): [address] [facility] ? ? ? Wbc 8.1 K/mm3 4.0-11.0 Final [facility] K/mm3 [facility] (Lab): [address] [facility] ? ? ? Rbc 4.09 4.00-5.20 Final [facility] M/mm3 M/mm3 [facility] (Lab): [address] [facility] ? ? ? Mcv 90.2 fL 79.0-97.0 Final [facility] fL [facility] (Lab): [address] [facility] ? ? ? Mch 30.2 pg 27.0-32.0 Final [facility] est pg [facility] (Lab): [address] [facility] ? ? ? Mchc 33.5 g/dL 32.0-36.0 Final [facility] [place] g/dL [facility] (Lab): [address] [facility] ? ? High Rdw 14.6 % 11.5-14.5 Final [facility] (Lab): [address] [facility] ? ? ? Plt 285 K/mm3 150-400 Final [facility] K/mm3 [facility] (Lab): [address] [facility] ? ? ? Note ? ? Final [facility] (Lab): [address] [facility] 06/24/2014 BMP, Serum or ? Sodium 142 135-145 Samantha l [facility] Plasma mmol/L mmol/L [facility] (Lab): [address] [facility] ? ? ? Potassium 4.8 3.5-5.1 Final [facility] mmol/L mmol/L [facility] (Lab): [address] [facility] ? ? ? Chloride 104 96-[address] mmol/L mmol/L [facility] (Lab): [address] [facility] ? ? ? Carbon 26 mmol/L 24-32 Final [facility] Dioxide mmol/L [facility] (Lab): [address] [facility] ? ? ? Anion Gap 12 mmol/L 4-14 Final Met rowest mmol/L [facility] (Lab): [address] [facility] ? ? ? Glucose 91 mg/dL 70-105 Final [facility] mg/dL [facility] (Lab): [address] [facility] ? ? ? Bun 13 mg/dL 8-21 mg/dL Final [facility] [place] (Lab): [address] [facility] ? ? ? Creatinine 0.68 0.51-0.95 Final Me trowest mg/dL mg/dL [facility] (Lab): [address] [facility] ? ? ? Estimated GFR > 60 >60 mL/min Final [facility] mL/min [facility] (Lab): [address] [facility] ? ? ? Estimated > 60 >60 mL/min Final Me trowest GFR, mL/min [facility] Ce [facility]ter [facility] (Lab): [address] [facility] ? ? ? Calcium 9.2 mg/dL 8.6-10.3 Final Met rowest mg/dL [facility] (Lab): [address] [facility] ? ? ? Note ? ? Final [facility] (Lab): [address] [facility] 06/24/2014 Lipid Panel, ? Cholesterol 198 mg/dL <200 mg/dL Final [facility] Serum [facility] (Lab): [address] [facility] ? ? ? Triglycerides 84 mg/dL <200 mg/dL [facility] (Lab): [address] [facility] [facility] ? ? ? HDL 42 mg/dL ? Final [facility] t Cholesterol [facility] (Lab): [address] [facility] [facility] ? ? ? LDL 139 mg/dL <159 mg/dL Final [facility] rowest Cholesterol [facility] (Lab): [address] [facility] [facility] ? ? ? chol/HDL 4.71 ? [facility] (Lab[facility] [address] [facility] ? ? High Coronary Risk 1.11 0.00-1.00 Final [facility] Factor [facility] (Lab): [address] [facility] ? ? ? Note ? ? Final [facility] (Lab): [address] [facility] 06/24/2014 Vitamin Low Vitamin D 13 NG/mL >30 NG/mL [facility] D,25-Hydroxy 25-Oh Medi larry [facility] (Lab): [address] [facility] ? ? ? Note ? ? Final [facility] (Lab): [address] [facility] 06/24/2014 TSH, Serum or ? Tsh 2.320 0.270-4.20 Fi nal [facility] Plasma mciu/mL 0 mciu/mL [facility] (Lab): [address] [facility] ? ? ? Note ? ? Final [facility] (Lab): [address] [facility] 01/19/2014 TSH, Serum or ? Tsh 1.570 0.270-4.20 Fi nal [facility] Plasma mciu/mL 0 mciu/mL [facility] (Lab): [address] [facility] ? ? ? Note ? ? Final [facility] (Lab): [address] [facility] 01/19/2014 TSH, Serum or ? Tsh 1.570 0.270-4.20 Fi nal [facility] Plasma mciu/mL 0 mciu/mL [facility] (Lab): [address] [place] ? ? ? Note ? ? Final [facility] (Lab): [address] , [place] 01/19/2014 T4, Free, ? Free T4 1.53 0.93-1.70 Final [facility] Serum NG/dL NG/dL [facility] (Lab): [address] , [place] ? ? ? Note ? ? Final [facility] (Lab): [address] , [place] 01/19/2014 T4, Free, ? Free T4 1.53 0.93-1.70 Final [facility] Serum NG/dL NG/dL [facility] (Lab): [address] , [place] ? ? ? Note ? ? Final [facility] (Lab): [address] , [place] 01/19/2014 TSH + Free ? No observation ? ? ? T4, Serum recorded. 10/01/2013 TSH, Serum or ? Tsh 1.710 0.270-4.20 Fi nal [facility] Plasma mciu/mL 0 mciu/mL [facility] (Lab): [address] [place] ? ? ? Note ? ? Final [facility] (Lab): [address] , [place] 09/03/2013 Type and ? Blood Group A ? Final [facility]- [facility]: [address], [place] ? ? ? Rh Type positive ? Final [facility]- [facility]: [address], [place] ? ? ? Antibody negative ? Final [facility]- [facility]: [address], [place] ? ? ? Note ? ? Final [facility]- [facility]: [address], [place] 09/03/2013 Lab Result ? Results ? ? ? [facility]- [facility]: [address], [place] ? ? ? Note ? ? Final [facility]- [facility]: [address], [place] 08/27/2013 Type and ? Blood Group A ? Final [facility]- [facility]: [address], [place] ? ? ? Rh Type positive ? Final [facility]- [facility]: [address], [place] ? ? ? Antibody negative ? Final [facility]: [address], [place] ? ? ? Note ? ? Final [facility]- [facility]: [address], [place] 08/27/2013 Culture, Mrsa ? Source: nose ? [facility] [address], [place] ? ? ? Result(s): negative ? Final [facility] : in-resist [address], aureus [place] ? ? ? Report final ? [facility]: [address], [place] ? ? ? Note ? ? Final [facility]- [facility]: [address], [place] 08/27/2013 Culture, Mrsa ? Source: throat ? [facility] [address], [place] ? ? ? Result(s): negative ? Final [facility] : in-resist [address], aureus [place] ? ? ? Report final ? Final [facility]- [facility]: [address], [place] ? ? ? Note ? ? Final [facility]- [facility]: [address], [place] 08/27/2013 CBC W/ Auto ? White Blood 7.8 3.9-11.[address] [facility] Diff Count x1000/uL x1000/uL Hospit al- [facility]: [address], [place] ? ? ? Red Blood 4.14 3.70-5.[address] [facility] Cell Count mil/uL mil/uL Hospit al- [facility]: [address], [place] ? ? ? Hemoglobin 12.5 g/dL 11.5-15.[address] [facility] g/dL Hospital- [facility]: [address], [place] ? ? ? Hematocrit 37.6 % 34.0-44.0 Final [facility]- [facility]: [address], [place] ? ? ? Mcv 91 fL 80-100 fL Final [facility]- [facility]: [address], [place] ? ? ? Mch 30 pg 27-33 pg Final [facility]- [facility]: [address], [place] ? ? ? Mchc 33 g/dL 31-36 g/dL Final [facility]- [facility]: [address] , [place] ? ? ? Rdw 14.0 % 11.4-14.4 Final [facility]- [facility]: [address] , [place] ? ? ? Platelet 307 150-450 Final [facility] Count x1000/uL x1000/uL Hospit al- [facility]: [address] , [place] ? ? High Mpv 11.2 fL 7.0-11.0 Final [facility]- [facility]: [address] , [place] ? ? ? Neutrophils 70 % 42-76 % Final [facility]- [facility]: [address] , [place] ? ? ? Lymphocytes 21 % 14-46 % Final [facility]: [address] , [place] ? ? ? Monocytes 8 % 4-13 % Final [facility]- [facility]: [address] , [place] ? ? ? Eosinophils 1 % 0-7 % Final [facility]- [facility]: [address] , [place] ? ? ? Basophils 0 % 0-3 % Final [facility]- [facility]: [address] , [place] ? ? ? Neutrophils 5.5 1.8-7.[address] [facility] (#) x1000/uL x1000/uL Hospit al- [facility]: [address] , [place] ? ? ? Lymphocytes 1.6 0.7-4.[address] [facility] (#) x1000/uL x1000/uL Hospit al- [facility]: [address] , [place] ? ? ? Monocytes (#) 0.6 0.1-0.8 Final [facility] x1000/uL x1000/uL Hospit al- [facility]: [address] , [place] ? ? ? Eosinophils 0.1 0.0-0.[address] [facility] (#) x1000/uL x1000/uL Hospit al- [facility]: [address] , [place] ? ? ? Basophils (#) 0.0 0.0-0.2 Final [facility] x1000/uL x1000/uL Hospit al- [facility]: [address] , [place] ? ? ? Note ? ? Final [facility]: [address] [facility] 08/27/2013 BMP, Serum or ? Glucose 77 mg/dL 65-[address] [facility] Plasma mg/dL Hospital- [facility]: [address] [facility] ? ? ? Bun 16 mg/dL 5-26 mg/dL Final [facility]- [facility]: [address] [facility] ? ? ? Creatinine 0.72 0.5-1.5 Final [facility] mg/dL mg/dL Hospital- [facility]: [address] [facility] ? ? ? BUN/creat 22 8-27 Final [facility] Ratio Hospital- [facility]: [address] [facility] ? ? ? Glom Filt 101.8 > 59 Final [facility] Rate, Est mL/min mL/[facility] [address] [facility] ? ? ? If 118.0 > [address] [facility] mL/min mL/min Ho spital- an [facility]: [address] [facility] ? ? ? Sodium 138 mEq/L 134-144 Final [facility] mEq/L Hospital- [facility]: [address] [facility] ? ? ? Potassium 4.3 mEq/L 3.5-5.[address] [facility] mEq/L Hospital- [facility]: [address] [facility] ? ? ? Chloride, 103 mEq/L 96-[address] [facility] Serum mEq/L Hospital- [facility]: [address] [facility] ? ? ? Carbon 28 mEq/L 20-32 Final [facility] ent Dioxide mEq/L Hospital- [facility]: [address] [facility] ? ? Low Anion Gap 7.0 8-12 Final [facility]- [facility]: [address] [facility] ? ? ? Calcium 9.3 mg/dL 8.3-10.[address] [facility] mg/dL Hospital- [facility]: [address] [facility] ? ? ? Note ? ? Final [facility]- [facility]: [address] [facility] 07/31/2013 Pap, IG + ? No observation ? ? ? [facility] HPV, Cervical recorded. [facility] 07/27/2013 Her2 by [facility] ? Her2 ([facility]) ? ? Fi nal [facility]- [facility]: [address] [facility] ? ? ? Note ? ? Final [facility]- [facility]: [address] [facility] 07/08/2013 BMP, Serum or ? Sodium 137 135-145 Samantha l [facility] Plasma mmol/L mmol/L [facility] (Lab): [address] [facility] ? ? ? Potassium 4.4 3.5-5.1 Final [facility] mmol/L mmol/L [facility] (Lab): [address] [facility] ? ? ? Chloride 99 mmol/L 98-106 Final [facility] [place] mmol/L [facility] (Lab): [address] [facility] [facility] ? ? ? Carbon 28 mmol/L 24-32 Final [facility] Dioxide mmol/L [facility] (Lab): [address] [facility] ? ? ? Anion Gap 10 mmol/L 4-14 Final Met rowest mmol/L [facility] (Lab): [address] [facility] ? ? ? Glucose 88 mg/dL 70-105 Final [facility] mg/dL [facility] (Lab): [address] [facility] ? ? High Bun 22 mg/dL 8-21 mg/dL Final [facility] [place] (Lab): [address] [facility] ? ? ? Creatinine 0.61 0.51-0.95 Final Me trowest mg/dL mg/dL [facility] (Lab): [address] [facility] ? ? ? Estimated GFR > 60 >60 mL/min Final [facility] mL/min [facility] (Lab): [address] [facility] ? ? ? Estimated > 60 >60 mL/min Final Me trowest GFR, mL/min [facility] Ce nter a [facility] (Lab): [address] [facility] [facility] ? ? ? Calcium 9.2 mg/dL 8.5-10.5 Final Met rowest mg/dL [facility] (Lab): [address] [facility] ? ? ? Note ? ? Final [facility] (Lab): [address] [facility] 01/26/2013 CBC W/diff ? Hgb 12.6 g/dL 12.0-16.0 Fin al [facility] g/dL Medical [facility] (Lab): [address] , [place] ? ? ? Hct 38.2 % 36.0-48.[address] % Medical [facility] (Lab): [address] , [place] ? ? ? Wbc 7.3 K/mm3 4.0-11.0 Final [facility] [place] K/mm3 [facility] (Lab): [address] , [place] ? ? ? Rbc 4.19 4.00-5.[address] M/mm3 M/mm3 [facility] (Lab): [address] , [place] ? ? ? Mcv 91.3 fL 79.0-97.0 Final [facility] fL [facility] (Lab): [address] , [place] ? ? ? Mch 30.0 pg 27.0-32.0 Final [facility] pg [facility] (Lab): [address] , [place] ? ? ? Mchc 32.8 g/dL 32.0-36.0 Final [place] [place] g/dL [facility] (Lab): [address] [place] ? ? ? Rdw 13.9 % 11.5-14.[address] % [facility] (Lab): [address] [place] ? ? ? Plt 287 K/mm3 150-400 Final [facility] K/mm3 [facility] (Lab): [address] [place] ? ? ? Note ? ? Final [place] [facility] (Lab): [address] , [place] 01/26/2013 Basic ? Sodium 136 135-145 Final [facility] [place]west Metabolic mmol/L mmol/L [facility] Panel [facility] (Lab): [address] [place] ? ? ? Potassium 4.5 3.5-5.1 Final [facility] [place] mmol/L mmol/L [facility] (Lab): [address] [facility] ? ? ? Chloride 98 mmol/L 98-106 Final [place] [place] mmol/L [facility] (Lab): [address] [place] ? ? ? Carbon 26 mmol/L 24-32 Final [facility] Dioxide mmol/L [facility] (Lab): [address] [facility] ? ? ? Anion Gap 12 mmol/L 4-14 Final Met rowest mmol/L [facility] (Lab): [address] [facility] ? ? Low Glucose 68 mg/dL 70-105 Final [facility] mg/dL [facility] (Lab): [address] [facility] ? ? ? Bun 13 mg/dL 8-21 mg/dL Final [place] [place] [facility] (Lab): [address] [facility] ? ? ? Creatinine 0.67 0.51-0.95 Final Me trowest mg/dL mg/dL [facility] (Lab): [address] [facility] ? ? ? Estimated GFR > 60 >60 mL/min Final [facility] mL/min [facility] (Lab): [address] [facility] ? ? ? Estimated > 60 >60 mL/min Final Me trowest GFR, mL/min [facility] Ce [facility]ter a [facility] (Lab): [address] [facility] ? ? ? Calcium 8.5 mg/dL 8.5-10.5 Final Met rowest mg/dL [facility] (Lab): [address] [facility] ? ? ? Note ? ? Final [facility] (Lab): [address] [facility] 01/26/2013 Lipid Panel ? Cholesterol 193 mg/dL 100-20 0 Final [facility] W/ Calculated mg/dL Med ical LDL [facility] (Lab): [address] [facility] ? ? ? Triglycerides 71 mg/dL <200 mg/dL [facility] [address] [facility] [facility] ? ? ? HDL 44 mg/dL ? Final [facility] t Cholesterol Medic [facility] (Lab): [address] [facility] ? ? ? LDL 135 mg/dL <159 mg/dL Final Met rowest Cholesterol Medic [facility] (Lab): [address] [facility] ? ? ? chol/HDL 4.39 ? Final [address] Ratio [facility] (Lab): [address] [facility] ? ? ? Coronary Risk 0.98 0.00-1.00 Final [facility] Factor [facility] (Lab): [address] [facility] ? ? ? Note ? ? Final [facility] (Lab): [address] [facility] 01/26/2013 Vitamin Low Vitamin D 12 NG/mL >30 NG/mL Fin cherelle [facility] D,25-Hydroxy 25-Oh [facility] (Lab): [address] [facility] ? ? ? Note ? ? Final [facility] (Lab): [address] [facility] 01/26/2013 Thyroid ? Tsh 1.130 0.270-4.20 Final etrowest Stimulating mciu/mL 0 mciu/mL M edical Hormone (TSH) [facility] (Lab): [address] [facility] ? ? ? Note ? ? Final [facility] (Lab): [address] [facility] 05/22/2012 Vitamin Low Vitamin D 12 NG/mL >30 NG/mL Fin cherelle [facility] D,25-Hydroxy 25-Oh [facility] (Lab): [address] [facility] ? ? ? Note ? ? Final [facility] (Lab): [address] [facility] 05/22/2012 Rast, Food ? Rast, Food comment () [facility] Allergy Allergy Medical Panel,adult Panel,adult [facility] (Lab): [address] [facility] ? ? ? Note ? ? Final [facility] (Lab): [address] [facility] 01/28/2012 CBC W/diff ? Hgb 12.3 g/dL 12.0-16.0 Fin cherelle [facility] g/dL [facility] (Lab): [address] [facility] ? ? ? Hct 37.5 % 36.0-48.0 Final [facility] % [facility] (Lab): [address] [facility] ? ? ? Wbc 7.8 K/mm3 4.0-11.0 [facility] (Lab): [address] [facility] ? ? ? Rbc 4.07 4.00-5.20 Final [facility] M/mm3 M/mm3 [facility] (Lab): [address] [facility] ? ? ? Mcv 92.0 fL 79.0-97.0 Final [facility] fL [facility] (Lab): [address] [facility] ? ? ? Mch 30.3 pg 27.0-32.0 Final [facility] est pg [facility] (Lab): [address] [facility] ? ? ? Mchc 32.9 g/dL 32.0-36.0 Final [place] g/dL [facility] (Lab): [address] [facility] ? ? High Rdw 15.1 % 11.5-14.[address] [facility] (Lab[facility] [address] [facility] ? ? ? Plt 275 K/mm3 150-400 Final [facility] K/mm3 [facility] (Lab): [address] [facility] ? ? ? Note ? ? Final [facility] (Lab): [address] [facility] 01/28/2012 Vitamin Low Vitamin D 10 NG/mL >30 NG/mL Fin al [facility] D,25-Hydroxy 25-Oh Medi [facility] (Lab): [address] [facility] ? ? ? Note ? ? Final [facility] (Lab): [address] [facility] 01/28/2012 Lipid Panel ? Cholesterol 188 mg/dL 100-20 0 Final [facility] W/ Calculated mg/dL Med ical LDL [facility] (Lab): [address] [facility] ? ? ? Triglycerides 72 mg/dL <200 mg/dL Fin al [place] [facility] (Lab): [address] [facility] ? ? ? HDL 45 mg/dL ? Final [facility]es t Cholesterol Medic [facility] (Lab): [address] [facility] ? ? ? LDL 129 mg/dL <159 mg/dL Final Met rowest Cholesterol Medic [facility] (Lab): [address] [facility] ? ? ? chol/HDL 4.18 ? Final [address] Ratio [facility] (Lab): [address] [facility] ? ? ? Coronary Risk 0.89 0.00-1.00 Final [facility] Factor [facility] (Lab): [address] [facility] ? ? ? Note ? ? Final [facility] (Lab): [address] [facility] 01/28/2012 Basic ? Sodium 138 135-145 Final [facility] [place]west Metabolic mmol/L mmol/L [facility] (Lab): [address] [facility] ? ? ? Potassium 4.4 3.5-5.1 Final [facility] [place] mmol/L mmol/L [facility] (Lab): [address] [facility] ? ? ? Chloride 102 98-[address] mmol/L mmol/L [facility] (Lab): [address] [facility] ? ? ? Carbon 27 mmol/L 24-32 Final [facility] Dioxide mmol/L [facility] (Lab): [address] [facility] ? ? ? Anion Gap 9 mmol/L 4-14 Final [place] mmol/L [facility] (Lab): [address] [facility] ? ? ? Glucose 77 mg/dL 70-105 Final [place] mg/dL [facility] (Lab): [address] [facility] ? ? ? Bun 17 mg/dL 8-21 mg/dL [facility] [address] [facility] ? ? ? Creatinine 0.68 0.51-0.95 Final Me trowest mg/dL mg/dL [facility] (Lab): [address] [facility] ? ? ? Estimated GFR > 60 >60 mL/min Final [facility] mL/min [facility] (Lab): [address] [facility] ? ? ? Estimated > 60 >60 mL/min Final Me trowest GFR, mL/min [facility] Ce [facility]ter [facility] (Lab): [address] [facility] ? ? ? Calcium 9.1 mg/dL 8.5-10.5 Final Met rowest mg/dL [facility] (Lab): [address] [facility] ? ? ? Note ? ? Final [facility] (Lab): [address] [facility] 01/28/2012 Thyroid ? Tsh 1.570 0.270-4.20 Final M etrowest Stimulating mciu/mL 0 mciu/mL M edical Hormone (TSH) [facility] (Lab): [address] [facility] ? ? ? Note ? ? Final [facility] (Lab): [address] [facility] 01/28/2012 Rabies Ab, ? Rabies >/=0.5 . IU/mL Final [facility] Cami Antibody IU/mL [facility] (Lab): [address] [facility] ? ? ? Note ? ? Final [facility] (Lab): [address] [facility] 01/23/2012 Pap Smear ? Pap Smear, see ? Final [facility] Screen seacoast Medical report [facility] (Lab): [address] [facility] ? ? ? Note ? ? Final [facility] (Lab): [address] [facility] 01/23/2012 [facility] Pap ? No observation ? ? ? [facility] Smear & HPV recorded. [facility] Past Encounters None recorded. Social History [...]
[2021-07-27 13:30] LABS: HCT 39.3 % (36.0-46.0); HGB 12.8 g/dL (11.2-15.7); MCH 30.1 pg (27.0-33.0); MCHC 32.6 % (32.0-36.0); MCV 93 fL (80-95); MPV 10.7 fL (8.0-11.0); Platelet Count 330 10^3/uL (130-400); RBC 4.25 10^6/uL (3.93-5.22); RDW 13.6 % (11.7-14.6); RDW-SD 45.9 fL; WBC 8.57 10^3/uL (4.4-10.8)
[2021-07-27 13:46] LABS: ESR 14 mm/hr (0-30)
[2021-07-27 14:51] LABS: TSH (W/Ref FT4) 0.42 uIU/mL (0.36-3.74)
[2021-07-27 21:35] LABS: CRP, High Sensitivity 4.64 mg/L (See Note); Rheumatoid Factor <8.6 IU/mL (<12.0)
[2021-07-28 11:18] LABS: Lyme Ab w Rflx to Lyme Confirm Negative (Negative)
[2021-07-28 15:25] LABS: ANA Interpretation Negative (Negative)
[2021-07-30 14:58] LABS: Anaplasma phagocytophilum Negative (Negative); B. miyamotoi PCR Negative (Negative); Babesia divergens/MO-1 Negative (Negative); Babesia duncani Negative (Negative); Babesia microti Negative (Negative); Ehrlichia chaffeensis Negative (Negative); Ehrlichia ewingii/canis Negative (Negative); Ehrlichia muris eauclairensis Negative (Negative)
== END 2021-07-27 02:21 | disposition home or self-care (01) ==
LOC: LBO 02:21
PROVIDERS: PCP Nurse Practitioner; Visit Provider Nurse Practitioner
DX: I10 Essential (primary) hypertension (principal); R53.83 Other fatigue; E66.9 Obesity, unspecified; M25.59 Pain in other specified joint
CPT/HCPCS: 36415; 85027; 85652; 86141; 87798; 84443; 86038; 86431; 86618

== ENCOUNTER 2022-02-14 03:28 | Outpatient (CLI) | payer MEDICAID, SELFPAY ==
[2022-02-14 08:26] LABS: Hemoglobin A1C 5.4 % (<5.7)
[2022-02-14 09:16] LABS: ALT 23 U/L (14-59); AST 14 U/L (15-37); Albumin 3.2 g/dL (3.4-5.0); Alkaline Phosphatase 83 U/L (46-116); Anion Gap 3.6 mmol/L (3-11); BUN 21 mg/dL (7-18); Bilirubin, Total 0.4 mg/dL (0.2-1.0); CO2 32.4 mmol/L (21.0-32.0); CREATININE 0.6 mg/dL (0.55-1.02); Calcium 8.9 mg/dL (8.5-10.1); Calculated LDL 179 mg/dL (<100); Chloride 101 mmol/L (98-107); Cholesterol 246 mg/dL (<200); Estimated GFR 107.26 (mL/min/1.73m2); Glucose 99 mg/dL (74-106); HDL Cholesterol 55 mg/dL (40-60); Potassium 4.4 mmol/L (3.5-5.1); Sodium 137 mmol/L (136-145); TSH (W/Ref FT4) 0.29 uIU/mL (0.36-3.74); Total Protein 7.3 g/dL (6.4-8.2); Triglyceride 63 mg/dL (<150); Vitamin B12 645 pg/mL (193-986)
[2022-02-14 09:39] LABS: FREE T4 1.47 ng/dL (0.76-1.46)
== END 2022-02-14 03:29 | disposition home or self-care (01) ==
LOC: LBO 03:28
PROVIDERS: PCP Nurse Practitioner; Visit Provider Nurse Practitioner
DX: E03.9 Hypothyroidism, unspecified (principal); E78.5 Hyperlipidemia, unspecified; R20.2 Paresthesia of skin; E66.9 Obesity, unspecified; R79.89 Other specified abnormal findings of blood chemistry
CPT/HCPCS: 36415; 80053; 80061; 82607; 83036; 84439; 84443

== ENCOUNTER → 2022-03-06 00:50 | Outpatient (CLI) | payer MEDICAID, SELFPAY ==
--- NOTE | 2022-03-06 07:00 | DI.MAMMO_ITS ---
Exam(s) MG MAMMO SCREENING 60 MIN DUR EXAM: MG MAMMO SCREENING 60 MIN DUR CLINICAL HISTORY: breast cancer screening,PERSONAL H/O BREAST CA,Z12.39. TECHNIQUE: Bilateral full field digital CC and MLO mammographic images were obtained with 3D tomosyn thesis and utilizing computer aided detection (CAD). Both conventional and implant displacement views were performed. COMPARISON: Prior mammograms were reviewed. FINDINGS: There are bilateral retropectoral implants which appear intact. There has apparently been prior bilateral mastectomy with reconstruction collapsed. The breast tissue is all fatty. There peripherally calcified benign or cysts noted bilaterally, this being a form of fat necrosis. No spiculated masses. Benign-appearing microcalcification group noted inferiorly left side. There is no significant architectural distortion nor skin thickening-retraction. IMPRESSION: No radiographic evidence of malignancy. Benign findings. BI-RADS Category 2 - Benign Findings Breast Density - Category A - Almost entirely fatty Breast density Category C or D implies that the patient has dense breast tissue. Dense breast tissue can make it harder to find cancer on a mammogram. Dense breast tissue is also associated with an incr eased risk of breast cancer. This information about the result of the mammogram report was provided to the patient to raise their awareness. Use this report when you speak with the patient about their risks for breast cancer, which includes their family history. At that time, you may recommend additional screening tests (Ultrasoun d or MRI) as these tests may add significant information. A negative radiographic report should not delay biopsy if a dominant or clinically suspicious mass is present. Up to ten percent of cancers are not identified on mammography. A negative report may reinforce clinical impression. Adenosis and dense breasts may obscure an underlying neoplasm. False positive reports average 6 to 10%. Patient will receive a letter notifying them of these results.
== END ==
PROVIDERS: PCP Nurse Practitioner; Visit Provider Nurse Practitioner
DX: Z12.31 Encounter for screening mammogram for malignant neoplasm of breast (principal); Z85.3 Personal history of malignant neoplasm of breast
CPT/HCPCS: 77063; 77067

== ENCOUNTER 2022-10-27 13:49 | Emergency (ER) | payer MEDICAID, SELFPAY ==
[2022-10-27 13:54] VITALS: BP 169/95; PULSE 88; RESP 20; TEMP 36.4; O2SAT 96
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
[2022-10-27] MEDS: Ibuprofen 600 MG TAB PO (15:48)
[2022-10-27] MEDS: methylPREDNISolone ACETATE 80 MG/ML VIAL IM (15:48)
== END 2022-10-27 15:49 | disposition home or self-care (01) ==
PROVIDERS: Emergency Provider Nurse Practitioner Family; PCP Nurse Practitioner
DX: S33.5XXA Sprain of ligaments of lumbar spine, initial encounter (principal); X58.XXXA Exposure to other specified factors, initial encounter
CPT/HCPCS: 96372; 99284; J1040

== ENCOUNTER 2022-11-12 13:39 | Outpatient (CLI) | payer MEDICAID, SELFPAY ==
[2022-11-12 13:46] LABS: Calculated LDL 206 mg/dL (<100); Cholesterol 281 mg/dL (<200); HDL Cholesterol 51 mg/dL (40-60); TSH 0.98 uIU/mL (0.36-3.74); Triglyceride 123 mg/dL (<150)
[2022-11-12 14:37] LABS: FREE T4 1.36 ng/dL (0.76-1.46)
== END 2022-11-12 13:40 | disposition home or self-care (01) ==
LOC: LBO 13:41
PROVIDERS: PCP Nurse Practitioner; Visit Provider Nurse Practitioner
DX: E03.9 Hypothyroidism, unspecified (principal); E78.5 Hyperlipidemia, unspecified
CPT/HCPCS: 36415; 80061; 84439; 84443

== ENCOUNTER 2023-04-15 08:43 | Emergency (ER) | payer MEDICAID, SELFPAY ==
[2023-04-15 08:48] VITALS: BP 161/93; PULSE 80; RESP 18; TEMP 37; O2SAT 97
[2023-04-15 08:59] VITALS: BP 161/93; PULSE 80; RESP 18; TEMP 37; O2SAT 97
--- NOTE | 2023-04-15 09:15 | DI.RAD_ITS ---
Exam(s) XR HAND RT COMPLETE EXAM: XR HAND RT COMPLETE CLINICAL HISTORY: hand swelling. TECHNIQUE: 2D digital imaging was performed of the right hand. Three images were obtained. AP, late ral and oblique views were obtained. COMPARISON: No exams were available for comparison FINDINGS: BONES: No acute fracture is present. No bony destructive lesion is seen. JOINTS: No dislocation present. There are degenerative changes seen in the hand most marked at the 1s t CMC joint and the DIP joint of the index finger. No erosions are identified. SOFT TISSUE: No radiopaque foreign bodies are seen in the soft tissues. IMPRESSION: Degenerative changes seen in the right hand. DATA REPOSITORY: RADIATION DOSE DELIVERED:
[2023-04-15 09:53] LABS: Bilirubin Negative (Negative); Blood Trace-intact (Negative); Clarity Clear (Clear); Glucose Negative (Negative); Ketones Negative (Negative); Leukocyte Esterase Negative (Negative); Nitrite Negative (Negative); Specific Gravity 1.015 (1.005-1.025); Urobilinogen 0.2 mg/dL (Up to 0.2)
[2023-04-15 10:02] LABS: Bacteria Few HPF (Negative); C & S Indicated? No; Casts Negative LPF (Negative); Crystals Negative HPF (Negative); Epithelial Cells Rare HPF (Negative); Mucus Negative (Negative); Other Cells Negative (Negative); RBC 0-2 HPF (0-2); WBC Negative HPF (0-5)
[2023-04-15 10:21] LABS: Abs Immature Grans 0.01 10^3/uL (0.0-0.06); Absolute Basophil Count 0.04 10^3/uL (0.0-0.2); Absolute Eosinophil Count 0.21 10^3/uL (0.0-0.7); Absolute Lymphocyte Count 1.15 10^3/uL (1.2-3.4); Absolute Monocyte Count 0.48 10^3/uL (0.1-0.8); Absolute Neutrophil Count 3.83 10^3/uL (1.2-6.7); Basophils % 0.7; Eosinophils % 3.7; HCT 33.2 % (36.0-46.0); HGB 11.8 g/dL (11.2-15.7); Immature Grans % 0.2; Lymphocytes % 20.1; MCH 33.6 pg (27.0-33.0); MCHC 35.5 % (32.0-36.0); MCV 95 fL (80-95); MPV 9.7 fL (8.0-11.0); Monocytes % 8.4; Neutrophils % 66.9; Platelet Count 328 10^3/uL (130-400); RBC 3.51 10^6/uL (3.93-5.22); RDW 14.2 % (11.7-14.6); RDW-SD 48.7 fL; WBC 5.72 10^3/uL (4.4-10.8)
[2023-04-15 10:46] LABS: ALT 24 U/L (14-59); AST 16 U/L (15-37); Albumin 3.6 g/dL (3.4-5.0); Alkaline Phosphatase 79 U/L (46-116); Anion Gap 9.1 mmol/L (3-11); BUN 15 mg/dL (7-18); Bilirubin, Total 0.7 mg/dL (0.2-1.0); CO2 29.9 mmol/L (21.0-32.0); CREATININE 0.8 mg/dL (0.55-1.02); Calcium 9.5 mg/dL (8.5-10.1); Chloride 102 mmol/L (98-107); Glucose 102 mg/dL (74-106); Magnesium 2.1 mg/dL (1.8-2.4); NT-proBNP 82 pg/mL (<300); Potassium 3.5 mmol/L (3.5-5.1); Sodium 141 mmol/L (136-145); Total Protein 7.8 g/dL (6.4-8.2)
--- NOTE | 2023-04-15 11:15 | DI.RAD_ITS ---
Exam(s) XR HAND LT COMPLETE EXAM: XR HAND LT COMPLETE CLINICAL HISTORY: hand swelling. TECHNIQUE: 2D digital imaging was performed of the left hand. Three views were obtained. AP, later al and oblique views were obtained. COMPARISON: CR LEFT WRIST COMPLETE from 06/29/2016 FINDINGS: BONES: No acute fracture is present. No bony destructive lesion is seen. JOINTS: No dislocation present. There are marked degenerative changes seen at the 1st CMC joint with joint space narrowing and osteophytes present. There are more mild degenerative changes seen in the interphalangeal joints of the fingers. SOFT TISSUE: Normal. IMPRESSION: Osteoarthritis of the hand. The findings are marked at the 1st CMC joint. DATA REPOSITORY: RADIATION DOSE DELIVERED:
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
== END 2023-04-15 12:08 | disposition home or self-care (01) ==
PROVIDERS: Emergency Provider Emergency Medicine; PCP Nurse Practitioner
DX: R22.33 Localized swelling, mass and lump, upper limb, bilateral (principal); E89.0 Postprocedural hypothyroidism; Z85.3 Personal history of malignant neoplasm of breast; Z85.850 Personal history of malignant neoplasm of thyroid; Z90.13 Acquired absence of bilateral breasts and nipples; Z87.891 Personal history of nicotine dependence
CPT/HCPCS: 36415; 80053; 99283; 73130; 81003; 81015; 83735; 83880; 85025

== ENCOUNTER 2023-04-17 15:10 | Outpatient (CLI) | payer MEDICAID, SELFPAY ==
[2023-04-17 15:55] LABS: Abs Immature Grans 0.02 10^3/uL (0.0-0.06); Absolute Basophil Count 0.04 10^3/uL (0.0-0.2); Absolute Eosinophil Count 0.28 10^3/uL (0.0-0.7); Absolute Lymphocyte Count 1.37 10^3/uL (1.2-3.4); Absolute Monocyte Count 0.52 10^3/uL (0.1-0.8); Absolute Neutrophil Count 4.49 10^3/uL (1.2-6.7); Basophils % 0.6; Eosinophils % 4.2; HCT 31.3 % (36.0-46.0); HGB 10.9 g/dL (11.2-15.7); Immature Grans % 0.3; Lymphocytes % 20.4; MCH 33.3 pg (27.0-33.0); MCHC 34.8 % (32.0-36.0); MCV 96 fL (80-95); MPV 10.4 fL (8.0-11.0); Monocytes % 7.7; Neutrophils % 66.8; Platelet Count 349 10^3/uL (130-400); RBC 3.27 10^6/uL (3.93-5.22); RDW-SD 49.2 fL; WBC 6.72 10^3/uL (4.4-10.8)
[2023-04-17 15:58] LABS: ESR 21 mm/hr (0-30)
[2023-04-17 16:28] LABS: Hemoglobin A1C < 4.5 % (<5.7)
[2023-04-17 16:36] LABS: ALT 23 U/L (14-59); AST 17 U/L (15-37); Albumin 3.5 g/dL (3.4-5.0); Alkaline Phosphatase 76 U/L (46-116); BUN 28 mg/dL (7-18); Bilirubin, Total 0.5 mg/dL (0.2-1.0); C-Reactive Protein 1.06 mg/dL (0.0-0.3); CREATININE 0.8 mg/dL (0.55-1.02); Calcium 8.9 mg/dL (8.5-10.1); Calculated LDL 175 mg/dL (<100); Chloride 104 mmol/L (98-107); Cholesterol 254 mg/dL (<200); Glucose 109 mg/dL (74-106); HDL Cholesterol 49 mg/dL (40-60); Potassium 3.8 mmol/L (3.5-5.1); Sodium 142 mmol/L (136-145); Triglyceride 154 mg/dL (<150)
[2023-04-17 21:58] LABS: Rheumatoid Factor <8.6 IU/mL (<12.0)
[2023-04-18 10:04] LABS: Lyme Ab w Rflx to Lyme Confirm Negative (Negative)
[2023-04-18 11:06] LABS: Cyclic Citrullinated Peptide <2.5 U/mL (<5.0)
[2023-04-18 13:16] LABS: ANA Interpretation Negative (Negative)
[2023-04-19 18:57] LABS: Anaplasma phagocytophilum Negative (Negative); B. miyamotoi PCR Negative (Negative); Babesia divergens/MO-1 Negative (Negative); Babesia duncani Negative (Negative); Babesia microti Negative (Negative); Ehrlichia chaffeensis Negative (Negative); Ehrlichia ewingii/canis Negative (Negative); Ehrlichia muris eauclairensis Negative (Negative)
== END 2023-04-17 15:11 | disposition home or self-care (01) ==
LOC: LBO 15:11
PROVIDERS: PCP Nurse Practitioner; Visit Provider Nurse Practitioner
DX: E66.9 Obesity, unspecified (principal); R63.4 Abnormal weight loss; M79.89 Other specified soft tissue disorders; R29.898 Other symptoms and signs involving the musculoskeletal system; E03.9 Hypothyroidism, unspecified; E78.5 Hyperlipidemia, unspecified; I10 Essential (primary) hypertension
CPT/HCPCS: 36415; 80053; 80061; 85652; 86200; 87798; 83036; 84443; 85025; 86038; 86140; 86431; 86618

== ENCOUNTER 2023-04-22 07:58 | Emergency (ER) | payer MEDICAID, SELFPAY ==
[2023-04-22 08:04] VITALS: BP 170/95; PULSE 104; RESP 18; TEMP 37; O2SAT 100
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
== END 2023-04-22 09:43 | disposition left against medical advice (07) ==
PROVIDERS: Emergency Provider Nurse Practitioner Family; PCP Nurse Practitioner
DX: Z53.21 Procedure and treatment not carried out due to patient leaving prior to being seen by health care provider (principal)
CPT/HCPCS: 80053; 87040; 85025

== ENCOUNTER → 2023-05-21 09:06 | Outpatient (CLI) | payer MEDICAID, SELFPAY ==
--- NOTE | 2023-05-21 15:10 | DI.MRI_ITS ---
Exam(s) MR LUMBAR SPINE WO EXAM: MR LUMBAR SPINE WO CLINICAL HISTORY: LBP, LLE numbness, and weakness. LLE radiculopath M54.50 M54.16. TECHNIQUE: Multiplanar multisequence MRI of the Lumbar spine was performed. COMPARISON: CR XR LUMBAR SPINE COMPLETE from 07/22/2020 FINDINGS: Bones: The last intervertebral disc space is designated the L5/S1 level for the numbering purpose of this examination. The vertebral body heights are well maintained. Alignment is satisfactory. Mild d egenerative endplate signal changes are present in the lower thoracic and lumbar spine. Endplate ost eophytes are seen at several levels of the lumbar spine. Cord: The conus tip ends at the T12 level. It is of normal size and signal intensity. T12-L1: Mild diffuse disc bulge. There is mild narrowing of the central spinal canal. Mild bilatera l neural foraminal narrowing. L1-2: No disc herniations or bulges are present. No central spinal canal or neural foraminal stenosis . L2-3: No disc herniations or bulges are present. No central spinal canal or neural foraminal stenosis . L3-4: No disc herniations or bulges are present. No central spinal canal or neural foraminal stenosis .There are degenerative changes of the facets bilaterally. L4-5: There is a mild diffuse disc bulge. There are hypertrophic changes of the facets and ligamentu m flavum. There is minimal narrowing of the central spinal canal. [id number] bilateral neural foraminal stenosis is present. L5-S1: Mild diffuse disc bulge. There are degenerative changes of the facets. No significant centra l spinal canal stenosis is present. Moderate bilateral neural foraminal stenosis is seen, left great er than right. Soft tissues: The visualized SI joints and sacrum are well maintained. The paraspinal soft tissues ar e unremarkable. IMPRESSION: Multilevel degenerative changes in the lumbar spine as described above. Please see the above discuss ion for distinct level information. DATA REPOSITORY:
== END ==
PROVIDERS: PCP Nurse Practitioner; Visit Provider Nurse Practitioner
DX: M51.36 Other intervertebral disc degeneration, lumbar region
CPT/HCPCS: 72148

== ENCOUNTER → 2023-06-25 00:41 | Outpatient (CLI) | payer MEDICAID, SELFPAY ==
--- NOTE | 2023-06-25 06:45 | DI.MRI_ITS ---
Exam(s) MR BRAIN WO/W EXAM: MR BRAIN WO/W CLINICAL HISTORY: H/O breast cancer,unexplained weakness,?METS,NEUROPATHY,G62.9. TECHNIQUE: Multiplanar multisequence MRI of the brain was performed. CONTRAST MATERIAL: IV Contrast: 20 ML of Dotarem contrast administered. COMPARISON: No exams were available for comparison FINDINGS: VENTRICLES AND EXTRA AXIAL SPACES: Normal in size and morphology for the patient's age. HEMORRHAGE: None. CEREBRAL PARENCHYMA: No focus of restricted diffusion to suggest acute infarct. No space-occupying le gaviota identified. No abnormal high signal lesions in the white matter. MIDLINE SHIFT: None. BRAINSTEM/CEREBELLUM: Normal. CALVARIUM: Normal. ENHANCEMENT: No suspicious enhancement identified. VISUALIZED PARANASAL SINUSES/MASTOIDS: Mild mucosal thickening. Orbits: Unremarkable. Pituitary: Normal. Vasculature: Normal flow voids. IMPRESSION: Unremarkable MRI of the brain. DATA REPOSITORY:
[2023-06-25] MEDS: Normal Saline Flush 10 ML SYR IVP (10:23)
[2023-06-25] MEDS: Gadoterate meglumine 20 ML SYRINGE IVP (10:23)
== END ==
PROVIDERS: PCP Nurse Practitioner; Visit Provider Family Medicine
DX: R53.1 Weakness (principal); G62.89 Other specified polyneuropathies; Z85.3 Personal history of malignant neoplasm of breast
CPT/HCPCS: 70553

== ENCOUNTER 2023-08-30 13:31 | Outpatient (REF) | payer MEDICAID, SELFPAY ==
--- NOTE | 2023-08-30 13:40 | SKI_PTH ---
PATIENT: Matteo Kim LOC: [facility] U#:[id number] AGE/SX: 52/F ROOM: RE08/30/[address]: LD Leslie : 1970 BED: DIS: 08/30/2023 SPEC #: [id number] RECD: 08/30/23 17:20 STATUS: MARILY JAVIER #: [id number] CARYL: 08/30/23 13:[address]: Keesha Kunz DEPT: Surgical Specimen RECD BY: Ghada Fox ENTERED: 08/30/23 17:21 SP TYPE: JENNIFER SHELL DR: Luisana Ayala APRN Tissues: 1 - SKIN BIOPSY(SHAVE/PUNCH) Procedures: SKIN LEVEL 4 Comments: [id number]
== END 2023-08-30 13:32 | disposition home or self-care (01) ==
LOC: LBN 13:31
PROVIDERS: PCP Nurse Practitioner; Visit Provider Physical Therapy Assistant
DX: L82.1 Other seborrheic keratosis (principal)
CPT/HCPCS: 88305

== ENCOUNTER 2023-10-11 14:42 | Emergency (ER) | payer MEDICAID, SELFPAY ==
--- NOTE | 2023-10-11 14:30 | RT.EKG_ITS ---
APPROVED REPORT Exam: Resting ECG Reason for Exam: Chest pain Patient Location: E HR:72 bpm ECG Measurements Heart Rate 72 AXIS HI 138 P 46 QRSd 95 QRS -8 QT 412 T 7 QTc 452 Conclusion Sinus rhythm...normal P axis, V-rate 60- 99 Narrow complex normal sinus rhythm at a rate of 72. Left axis deviation no signs of LVH based on vol tage criteria. Intervals within normal limits. No ST segment abnormalities. T wave inversions in l ead III. No prior for comparison. No acute injury pattern.
[2023-10-11 14:53] VITALS: BP 142/100; PULSE 78; RESP 20; TEMP 36.6; O2SAT 99
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
--- NOTE | 2023-10-11 15:00 | DI.US_ITS ---
Exam(s) US ABDOMEN LIMITED EXAM: US ABDOMEN LIMITED CLINICAL HISTORY: Right upper quadrant pain TECHNIQUE: Ultrasound abdomen performed using standard protocol. COMPARISON: No exams were available for comparison FINDINGS: There is no ascites evident. LIVER: There are no hepatic lesions evident nor dilatation of intrahepatic ducts. GALLBLADDER/BILIARY: Multiple gallstones. Gallbladder wall does not appear thickened or edematous bu t the patient was apparently tender over this area during scanning. The common hepatic duct isnot dilated, measuring 4mm at the level of karl hepatis. PANCREAS: There is no evidence of pancreatic mass nor dilatation of the pancreatic duct. RIGHT KIDNEY:No evidence of solid mass, calculus, nor hydronephrosis. No cortical cysts evident. IMPRESSION: 1. Cholelithiasis. There are multiple shadowing gallstones within the lumen of the nondistended gal lbladder. The gallbladder does not appear edematous and there is no pericholecystic fluid nor dilata tion of the CBD. However, the patient was apparently tender over this area during scanning today. 2. No other significant ultrasound findings in the right upper quadrant. 3. There is no ascites. DATA REPOSITORY:
--- NOTE | 2023-10-11 15:14 | DI.RAD_ITS ---
Exam(s) XR CHEST 2V PA LATERAL EXAM: XR CHEST 2V PA LATERAL CLINICAL HISTORY: Chest pain. TECHNIQUE: 2D digital imaging was performed. COMPARISON: No exams were available for comparison FINDINGS: 2 views: Heart size is normal. The mediastinum is not widened. Lungs are clear. No infiltrates nor pleural effusions. IMPRESSION: No acute pulmonary findings. DATA REPOSITORY: RADIATION DOSE DELIVERED:
[2023-10-11] MEDS: Aspirin 81 MG CHEW 324 MG CH (15:55)
[2023-10-11 16:06] LABS: Abs Immature Grans 0.02 10^3/uL (0.0-0.06); Absolute Basophil Count 0.04 10^3/uL (0.0-0.2); Absolute Eosinophil Count 0.11 10^3/uL (0.0-0.7); Absolute Lymphocyte Count 1.31 10^3/uL (1.2-3.4); Absolute Monocyte Count 0.58 10^3/uL (0.1-0.8); Absolute Neutrophil Count 6.08 10^3/uL (1.2-6.7); Basophils % 0.5 %; Eosinophils % 1.4 %; HCT 38.8 % (36.0-46.0); HGB 13.1 g/dL (11.2-15.7); Immature Grans % 0.2 %; Lymphocytes % 16.1 %; MCH 30.8 pg (27.0-33.0); MCHC 33.8 % (32.0-36.0); MCV 91 fL (80-95); MPV 10.5 fL (8.0-11.0); Monocytes % 7.1 %; Neutrophils % 74.7 %; Platelet Count 322 10^3/uL (130-400); RBC 4.25 10^6/uL (3.93-5.22); RDW 13.2 % (11.7-14.6); RDW-SD 44.3 fL; WBC 8.14 10^3/uL (4.4-10.8)
[2023-10-11 16:23] LABS: ALT 23 U/L (14-59); AST 13 U/L (15-37); Albumin 3.7 g/dL (3.4-5.0); Alkaline Phosphatase 77 U/L (46-116); BUN 16 mg/dL (7-18); Bilirubin, Total 0.63 mg/dL (0.2-1.0); CREATININE 0.9 mg/dL (0.55-1.02); Calcium 9.2 mg/dL (8.5-10.1); Chloride 102 mmol/L (98-107); Glucose 97 mg/dL (74-106); Lipase 17 U/L (16-77); Potassium 3.1 mmol/L (3.5-5.1); Sodium 142 mmol/L (136-145)
[2023-10-11 16:26] LABS: Anion Gap 9.3 mmol/L (3-11); CO2 30.7 mmol/L (21.0-32.0)
[2023-10-11 16:30] LABS: Troponin I < 50 ng/L (< or =60)
[2023-10-11 16:44] LABS: D-Dimer 683 ng/mlFEU (<500)
[2023-10-11 17:30] LABS: Troponin I < 50 ng/L (< or =60)
== END 2023-10-11 17:49 | disposition home or self-care (01) ==
PROVIDERS: Emergency Provider Emergency Medicine; PCP Nurse Practitioner
DX: R07.9 Chest pain, unspecified (principal); R10.9 Unspecified abdominal pain; R06.02 Shortness of breath; I10 Essential (primary) hypertension; K80.20 Calculus of gallbladder without cholecystitis without obstruction
CPT/HCPCS: 80048; 80053; 83690; 93005; 96374; 99284; 71046; 76705; 84484; 85025; 85379; 93010; 99283

== ENCOUNTER 2024-01-16 15:49 | Outpatient (CLI) | payer MEDICAID, SELFPAY ==
--- NOTE | 2024-01-16 15:30 | DI.RAD_ITS ---
Exam(s) XR ANKLE LT COMPLETE EXAM: XR ANKLE LT COMPLETE CLINICAL HISTORY: Lt ankle pain, M25.572, eval fx TECHNIQUE: 2D digital imaging was performed. Three views. COMPARISON: No exams were available for comparison FINDINGS: BONES: No acute fracture is present. No bony destructive lesion is seen. Prominent heel spurs. JOINTS:The ankle mortise is normally aligned. SOFT TISSUE: Soft tissue swelling around the malleoli. IMPRESSION: Soft tissue swelling. No evidence of fracture or ankle mortise widening. DATA REPOSITORY: RADIATION DOSE DELIVERED:
== END 2024-01-16 16:09 ==
LOC: DI 15:50
PROVIDERS: PCP Nurse Practitioner; Visit Provider Nurse Practitioner Family
DX: M25.572 Pain in left ankle and joints of left foot (principal)
CPT/HCPCS: 73610

== ENCOUNTER 2024-09-15 10:56 | Emergency (ER) | payer OTHER, MEDICAID, SELFPAY ==
[2024-09-15 10:58] VITALS: BP 178/112; PULSE 72; RESP 18; TEMP 36.6; O2SAT 97
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
--- NOTE | 2024-09-15 12:15 | DI.RAD_ITS ---
Exam(s) XR SHOULDER LT COMPLETE 2+V EXAM: XR SHOULDER LT COMPLETE 2+V CLINICAL HISTORY: fell lateral and posterior discomfort. TECHNIQUE: 2D digital imaging was performed. Three views. COMPARISON: No exams were available for comparison FINDINGS: BONES: No acute fracture is present. No bony destructive lesion is seen. JOINTS: No dislocation present. Moderate spurring at the AC joint. The glenohumeral joint space is maintained. SOFT TISSUE: Normal. IMPRESSION: Degenerative changes of the AC joint. DATA REPOSITORY: RADIATION DOSE DELIVERED:
--- NOTE | 2024-09-15 12:15 | DI.RAD_ITS ---
Exam(s) XR KNEE LT 4V AP,LAT,SHEN,PAT EXAM: XR KNEE LT 4V AP,LAT,SHEN,PAT CLINICAL HISTORY: fell, struck anteriolateral aspect. TECHNIQUE: 2D digital imaging was performed. Three views. COMPARISON: MR MR LOWER JOINT RT WO from 08/28/2019 FINDINGS: BONES: No acute fracture is present. No bony destructive lesion is seen. JOINTS: Mild periarticular spurring. Mild narrowing of the lateral femoral tibial joint space. The knee is normally aligned. No joint effusion is seen. SOFT TISSUE: Normal. IMPRESSION: No acute abnormality. Mild degenerative changes. DATA REPOSITORY: RADIATION DOSE DELIVERED:
[2024-09-15 13:34] VITALS: BP 150/93; PULSE 62; RESP 18; O2SAT 99
== END 2024-09-15 13:34 | disposition home or self-care (01) ==
PROVIDERS: Emergency Provider Physician Assistant
DX: S80.02XA Contusion of left knee, initial encounter (principal); S40.012A Contusion of left shoulder, initial encounter; W01.0XXA Fall on same level from slipping, tripping and stumbling without subsequent striking against object, initial encounter
CPT/HCPCS: 99283; 99284; 29505; 73030; 73564

== ENCOUNTER 2024-11-13 00:26 | Outpatient (CLI) | payer MEDICAID, SELFPAY ==
--- NOTE | 2024-11-13 05:45 | DI.MRI_ITS ---
Exam(s) MR UPPER JOINT LT WO EXAM: MR UPPER JOINT LT WO CLINICAL HISTORY: L SHOULDER PAIN,TRAUMATIC TEAR LT ROTATOR CUFF,S46.012A TECHNIQUE: Multiplanar multisequence MRI of the shoulder was performed. COMPARISON: CR XR SHOULDER LT COMPLETE 2+V from 09/15/2024 FINDINGS: MARROW:There is no evidence of fracture, Hill-Sachs deformity, nor ominous osseous lesions. GLENOHUMERAL JOINT: No prominent joint effusion nor obvious loose intra- articular bodies. No prominent chondral defects. No osteophytes. No degenerative subarticular cysts. ROTATOR CUFF MECHANISM: AC JOINT/ACROMIUM: There is significant degenerative changes in the AC joint.. There is no evidence of os acromiale. Supraspinatus: There is some tendinitis signal. There is small area of partial articular side surface tearing. There is no muscle belly atrophy. There is mild edema in the subacromial space. Infraspinatus: Some insertional tendinitis evident. No high-grade tear. No muscle atrophy. Teres Minor: Intact. No evidence of tear nor muscle atrophy. Subscapularis/anterior cuff: Intact. No abnormal signal at the level of the multipennate insertional fibers. No significant tear nor atrophy. BICEPS TENDON: Exhibits normal position within the intertubercular groove. No evidence of tear. LABRUM: No labral tear identified. No evidence of paralabral cyst. QUADRILATERAL SPACE: No evidence of mass in the region of the axillary nerve and dorsal circumflex humeral vessels. Visualized triceps muscle at this level appears unremarkable. IMPRESSION: 1. There is some tendinitis signal and partial articular side tearing of the supraspinatus tendon but no obvious full-thickness tear. No muscle atrophy. Also some insertional tendinitis signal seen in the infraspinatus. 2. There is significant degenerative changes in the acromioclavicular joint. 3. Minimal if any significant degenerative change in the glenohumeral joint. 4. There are no labral tears identified DATA REPOSITORY:
== END 2024-11-13 00:46 ==
PROVIDERS: PCP Nurse Practitioner Family; Visit Provider Student in an Organized Health Care Education/Training Program
DX: S46.012A Strain of muscle(s) and tendon(s) of the rotator cuff of left shoulder, initial encounter (principal); X58.XXXA Exposure to other specified factors, initial encounter
CPT/HCPCS: 73221

== ENCOUNTER → 2024-11-18 09:14 | Outpatient (BNVA) | payer MEDICARE, MEDICAID, SELFPAY | PROVIDERS: Visit Provider Student in an Organized Health Care Education/Training Program | DX: S46.012D Strain of muscle(s) and tendon(s) of the rotator cuff of left shoulder, subsequent encounter (principal); X58.XXXD Exposure to other specified factors, subsequent encounter | CPT/HCPCS: 99213 ==

== ENCOUNTER 2024-12-04 02:11 | Outpatient (CLI) | payer MEDICARE, MEDICAID, SELFPAY ==
--- NOTE | 2024-12-04 06:30 | DI.MRI_ITS ---
Exam(s) MR LOWER JOINT LT WO EXAM: MR LOWER JOINT LT WO CLINICAL HISTORY: PAIN,lt knee contusion,internal derangement,[id number],m23.92. TECHNIQUE: Multiplanar multisequence MRI was performed. COMPARISON: MR MR LOWER JOINT RT WO from 08/28/2019 CR XR KNEE LT 4V AP,LAT,SHEN,PAT from 09/15/2024 FINDINGS: BONES: There is no fracture or contusion pattern. JOINTS: There is mild thinning of the articular cartilage overlying the medial femoral condyle. No effusion is present. TENDONS: Extensor mechanism: Unremarkable. Medial retinaculum: Unremarkable. Lateral retinaculum: Unremarkable. Popliteus: Unremarkable. MUSCLES: Unremarkable. MENISCI: The medial meniscus is unremarkable. The lateral meniscus is unremarkable. SOFT TISSUES: Unremarkable. LIGAMENTS: Anterior Cruciate: Unremarkable. Posterior Cruciate: Unremarkable. Medial Collateral:Unremarkable. Lateral Collateral: Unremarkable. OTHER: There is a small popliteal cyst. There is a small amount of fluid associated with the proximal tibial fibular joint. IMPRESSION: 1. There is no evidence of a meniscal or ligament tear. 2. There is mild thinning of the articular cartilage overlying the medial femoral condyle. The joint spaces otherwise well maintained. 3. No evidence of a fracture or contusion. DATA REPOSITORY:
== END 2024-12-04 02:31 ==
PROVIDERS: PCP Student in an Organized Health Care Education/Training Program; Visit Provider Student in an Organized Health Care Education/Training Program
DX: S80.02XA Contusion of left knee, initial encounter (principal); X58.XXXA Exposure to other specified factors, initial encounter
CPT/HCPCS: 73721